=== PATIENT | male | born 1975 | race African-American/Black ===

== ENCOUNTER 2017-09-21 23:01 | Emergency (ER) | payer SELFPAY ==
[~2017-09-21] VITALS: Ht 175.3 cm; Wt 80.0 kg
[2017-09-21 23:13] VITALS: BP 138/81; PULSE 77; RESP 18; TEMP 98.6; O2SAT 99
[2017-09-21 23:24] VITALS: BP 146/80; PULSE 78; RESP 19; TEMP 98.8; O2SAT 99
[2017-09-21 23:47] LABS: BACTERIA, URINE RARE /hpf; BILIRUBIN, URINE NEG (NEG); BLOOD, URINE MOD (NEG); GLUCOSE,URINE NEG (NEG); KETONE, URINE NEG (NEG); MUCUS URINE FEW /lpf (OCC); NITRITE,URINE POS (NEG); RENAL EPITHELIAL CELLS 1 /hpf; SQUAMOUS EPITHELIAL CELL URINE 1 /hpf (0-5); URINE COLOR YELLOW (YELLW/STRAW); URINE LEUKOCYTE ESTERASE LARGE (NEG); WHITE BLOOD CELL CLUMPS MANY
[2017-09-21 23:54] LABS: AUTOMATED NEUTROPHIL # 8.1 TH/MM3 (1.8-7.7); BASOPHIL # 0.1 TH/MM3 (0-0.2); BASOPHIL % 0.7 % (0.0-2.0); EOSINOPHIL # 0.2 TH/MM3 (0-0.4); EOSINOPHIL % 1.9 % (0.0-4.0); HEMATOCRIT 42.8 % (39.0-51.0); HEMOGLOBIN 13.9 GM/DL (13.0-17.0); LYMPH % 16.7 % (9.0-44.0); LYMPHOCYTE # 1.8 TH/MM3 (1.0-4.8); MEAN CELL VOLUME 81.9 FL (80.0-100.0); MEAN CORPUSCULAR HEMOGLOBIN 26.6 PG (27.0-34.0); MEAN CORPUSCULAR HGB CONC 32.4 % (32.0-36.0); MEAN PLATELET VOLUME 8.9 FL (7.0-11.0); MONOCYTE # 0.8 TH/MM3 (0-0.9); NEUT % 73.7 % (16.0-70.0); PLATELET COUNT 257 TH/MM3 (150-450); RED BLOOD COUNT 5.22 MIL/MM3 (4.50-5.90); RED CELL DISTRIBUTION WIDTH 14.8 % (11.6-17.2)
[2017-09-22 00:06] LABS: ALBUMIN 4.1 GM/DL (3.4-5.0); ALT (GPT) 31 U/L (12-78); AST (GOT) 38 U/L (15-37); BICARBONATE 31.4 MEQ/L (21.0-32.0); BLOOD UREA NITROGEN 12 MG/DL (7-18); CALCIUM 9.2 MG/DL (8.5-10.1); CHLORIDE 105 MEQ/L (98-107); CREATININE 1.02 MG/DL (0.60-1.30); GLOMERULAR FILTRATION RATE 98 ML/MIN (>89); GLUCOSE,RANDOM 85 MG/DL (74-106); SODIUM (NA) 143 MEQ/L (136-145)
[2017-09-22 00:08] LABS: ALKALINE PHOSPHATASE 64 U/L (45-117); TOTAL BILIRUBIN ADULT 0.3 MG/DL (0.2-1.0); TOTAL PROTEIN 7.5 GM/DL (6.4-8.2)
[2017-09-22] MEDS ORDERED: KETOROLAC TROMETHAMINE 30 MG/ML (IVP) VIAL IV PUSH ONE (00:15)
[2017-09-22] MEDS ORDERED: SODIUM CHLOR 0.9% 1000 ML INJ 1,000 ML IV ONE (00:15)
[2017-09-22] MEDS ORDERED: cefTRIAXone INJ 1,000 MG in SODIUM CHLORIDE 0.9% INJ 100 ML IV ONE (00:15)
[2017-09-22] MEDS ORDERED: MORPHINE SULFATE 2 MG/ML SYRINGE IV PUSH ONE (00:15)
[2017-09-22] MEDS ORDERED: ONDANSETRON HCL 4 MG/2 ML VIAL IV PUSH ONE (00:15)
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
--- NOTE | 2017-09-22 01:20 | RADRPT ---
EXAM DATE/TIME: 09/22/2017 00:57 [facility] COMPARISON: No previous studies available for comparison. INDICATIONS : Right flank pain. ORAL CONTRAST: No oral contrast ingested. RADIATION DOSE: 5.89 CTDIvol (mGy) MEDICAL HISTORY : None SURGICAL HISTORY : None. ENCOUNTER: Initial ACUITY: 1 day PAIN SCALE: 9/10 LOCATION: Right flank TECHNIQUE: Volumetric scanning of the abdomen and pelvis was performed. Using automated exposure control and ad justment of the mA and/or kV according to patient size, radiation dose was kept as low as reasonably achievable to obtain optimal diagnostic quality images. DICOM format image data is available electro nically for review and comparison. FINDINGS: LOWER LUNGS: The visualized lower lungs are clear. LIVER: Homogeneous density without lesion. There is no dilation of the biliary tree. No calcified gallston es. SPLEEN: Normal size without lesion. PANCREAS: Within normal limits. KIDNEYS: Normal in size and shape. 3.8 cm right upper pole cyst. There is no solid mass, stone, or hydronephr osis demonstrated. No ureteral dilatation or calculus seen. There are scattered calcifications in bot h sides of the pelvic cavity that appear to be vascular. ADRENAL GLANDS: Within normal limits. VASCULAR: There is no aortic aneurysm. BOWEL/MESENTERY: Stomach is distended. The small bowel and colon demonstrate no acute abnormality. There is no free i ntraperitoneal air or fluid. Normal appendix. ABDOMINAL WALL: Within normal limits. RETROPERITONEUM: There is no lymphadenopathy. BLADDER: No wall thickening or mass. REPRODUCTIVE: Within normal limits. INGUINAL: There is no lymphadenopathy or hernia. MUSCULOSKELETAL: Within normal limits for patient age. CONCLUSION: 1. Nonspecific gastric distention. No perceptible mass or inflammatory changes. 2. 3.8 cm benign appearing cyst of the upper pole of the right kidney. 3. Otherwise negative. No stones or evidence of obstructive uropathy. Shahid Eagle MD on September 22, 2017 at 1:15 Board Certified Radiologist. This report was verified electronically.
[2017-09-22 01:30] VITALS: BP 133/72; PULSE 91; RESP 18; O2SAT 98
[2017-09-22] MEDS ORDERED: AZITHROMYCIN 250 MG TAB PO ONE (01:30)
[2017-09-22] MEDS ORDERED: SODIUM CHLORIDE 0.9% FLUSH 10 ML FLUSH IVF PRN (01:30)
[2017-09-22] MEDS ORDERED: CIPR-9 PO (02:56)
[2017-09-22] MEDS ORDERED: IBUP1TAB7 PO (02:56)
== END 2017-09-22 03:22 | disposition home or self-care (01) ==
LOC: NEPC 23:01
DX: N39.0 Urinary tract infection, site not specified (principal)
CPT/HCPCS: 74176; 80053; 81001; 83690; 85025; 87077; 87086; 87186; 87491; 87591; 96361; 96365; 96375; 99284; J0696; J1885; J2270; J2405; J7030

== ENCOUNTER 2017-09-23 12:20 | Inpatient (IN) | payer SELFPAY ==
[~2017-09-23] VITALS: Ht 175.3 cm; Wt 77.3 kg
[~2017-09-23 12:20] MED LIST: CIPR-9 PO; IBUP1TAB7 PO
[2017-09-23] MEDS ORDERED: IOHEXOL 350 MG/ML 10 ML VIAL (for RAD DIAG) IVCONTRAST ONE (12:21)
[2017-09-23 12:44] VITALS: BP 135/73; PULSE 92; RESP 14; TEMP 99; O2SAT 100
[2017-09-23 14:37] LABS: AUTOMATED NEUTROPHIL # 23.7 TH/MM3 (1.8-7.7); BASOPHIL # 0.1 TH/MM3 (0-0.2); BASOPHIL % 0.2 % (0.0-2.0); HEMATOCRIT 45.1 % (39.0-51.0); HEMOGLOBIN 14.6 GM/DL (13.0-17.0); LYMPHOCYTE # 0.8 TH/MM3 (1.0-4.8); MEAN CELL VOLUME 82.6 FL (80.0-100.0); MEAN CORPUSCULAR HEMOGLOBIN 26.7 PG (27.0-34.0); MEAN CORPUSCULAR HGB CONC 32.3 % (32.0-36.0); MEAN PLATELET VOLUME 9.9 FL (7.0-11.0); MONO % 3.9 % (0.0-8.0); NEUT % 92.9 % (16.0-70.0); PLATELET COUNT 196 TH/MM3 (150-450); RED BLOOD COUNT 5.46 MIL/MM3 (4.50-5.90); RED CELL DISTRIBUTION WIDTH 14.9 % (11.6-17.2); WHITE BLOOD COUNT 25.5 TH/MM3 (4.0-11.0)
[2017-09-23 14:42] LABS: BILIRUBIN, URINE NEG (NEG); BLOOD, URINE NEG (NEG); GLUCOSE,URINE 70 mg/dL (NEG); KETONE, URINE NEG (NEG); MUCUS URINE FEW /lpf (OCC); NITRITE,URINE NEG (NEG); PH, URINE 6.5 (5.0-8.5); URINE COLOR YELLOW (YELLW/STRAW); URINE LEUKOCYTE ESTERASE NEG (NEG)
[2017-09-23 15:00] VITALS: BP 129/59; PULSE 84; RESP 16; TEMP 98.7; O2SAT 97
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
[2017-09-23] MEDS ORDERED: SODIUM CHLOR 0.9% 1000 ML INJ 1,000 ML IV SCH (15:05)
[2017-09-23 15:10] LABS: ALBUMIN 3.3 GM/DL (3.4-5.0); ALKALINE PHOSPHATASE 59 U/L (45-117); ALT (GPT) 23 U/L (12-78); AST (GOT) 15 U/L (15-37); BICARBONATE 28.7 MEQ/L (21.0-32.0); BLOOD UREA NITROGEN 6 MG/DL (7-18); CALCIUM 9.1 MG/DL (8.5-10.1); CHLORIDE 105 MEQ/L (98-107); CREATININE 0.89 MG/DL (0.60-1.30); GLOMERULAR FILTRATION RATE 114 ML/MIN (>89); GLUCOSE,RANDOM 117 MG/DL (74-106); SODIUM (NA) 139 MEQ/L (136-145); TOTAL BILIRUBIN ADULT 0.5 MG/DL (0.2-1.0); TOTAL PROTEIN 7.2 GM/DL (6.4-8.2)
[2017-09-23] MEDS ORDERED: SODIUM CHLORIDE 0.9% FLUSH 10 ML FLUSH IV FLUSH PRN ×2 (15:15→21:30)
[2017-09-23] MEDS ORDERED: ONDANSETRON HCL 4 MG/2 ML VIAL IVP ONE ×2 (15:15→17:45)
[2017-09-23] MEDS ORDERED: cefTRIAXone INJ 1,000 MG in SODIUM CHLORIDE 0.9% INJ 100 ML IV ONE (15:15)
[2017-09-23] MEDS ORDERED: MORPHINE SULFATE 4 MG/ML INJ IV PUSH ONE (15:15)
[2017-09-23] MEDS ORDERED: metroNIDAZOLE 500 MG INJ 100 ML IV ONE (15:15)
[2017-09-23] MEDS ORDERED: DIATRIZOATE MEGLUM/DIATRIZOATE SOD 9 ML CUP ONE ×2 (15:31→15:33)
--- NOTE | 2017-09-23 17:31 | RADRPT ---
EXAM DATE/TIME: 09/23/2017 16:54 [facility] COMPARISON: CT ABDOMEN & PELVIS W/O CONTRAST, September 22, 2017, 0:57. INDICATIONS : Right lower quadrant pain. IV CONTRAST: 100 cc Omnipaque 350 (iohexol) IV ORAL CONTRAST: Prescribed oral contrast ingested. RADIATION DOSE: 6.64 CTDIvol (mGy) MEDICAL HISTORY : None SURGICAL HISTORY : None. ENCOUNTER: Initial ACUITY: 1 day PAIN SCALE: 10/10 LOCATION: Right lower quadrant abdomen TECHNIQUE: Volumetric scanning of the abdomen and pelvis was performed. Using automated exposure control and ad justment of the mA and/or kV according to patient size, radiation dose was kept as low as reasonably achievable to obtain optimal diagnostic quality images. DICOM format image data is available electro nically for review and comparison. FINDINGS: LOWER LUNGS: There is some developing atelectatic changes in the left base. Airspace disease posteriorly in the ri ght base is more extensive and could represent early infiltrate. Small associated effusion with regio nal granulomatous type calcifications. LIVER: Homogeneous density without lesion. There is no dilation of the biliary tree. No calcified gallston es. SPLEEN: Normal size without lesion. PANCREAS: Within normal limits. KIDNEYS: Normal in size and shape. There is no mass, stone or hydronephrosis. Benign-appearing cysts in the u pper pole cortices of both kidneys, the largest on the right measuring 2.7 cm in diameter. Contrast i s identified throughout the collecting system and ureters of both kidneys without nephrolithiasis or obstruction ADRENAL GLANDS: Within normal limits. VASCULAR: There is no aortic aneurysm. BOWEL/MESENTERY: The stomach, small bowel, and colon demonstrate no acute abnormality. There is no free intraperitone al air or fluid. The appendix is not clearly identified on the current exam. On the study performed o ne day earlier, the air filled appendix was identified and was radiographically intact ABDOMINAL WALL: Within normal limits. RETROPERITONEUM: There is no lymphadenopathy. BLADDER: No wall thickening or mass. REPRODUCTIVE: Within normal limits. INGUINAL: There is no lymphadenopathy or hernia. MUSCULOSKELETAL: Within normal limits for patient age. CONCLUSION: 1. Developing bibasilar airspace disease. This appears atelectatic on the left. Possible early infilt rate with associated effusion on the right. This can produce referred upper quadrant abdominal pain. 2. Parenchymal calcifications in the right lung base. 3. The appendix is not clearly identified on the current exam but appeared radiographically intact on e day earlier. 4. Benign-appearing cysts in the upper pole cortices of both kidneys. Collecting systems and ureters are contrast-filled without nephrolithiasis or obstruction. Ken Merritt MD on September 23, 2017 at 17:18 Board Certified Radiologist. This report was verified electronically.
[2017-09-23] MEDS ORDERED: HYDROmorphone HCL PF 1 MG/ML VIAL IVS ONE (17:45)
[2017-09-23] MEDS ORDERED: HYDROmorphone HCL PF 2 MG/ML VIAL IV ONE (18:00)
[2017-09-23 18:19] VITALS: BP 119/58; PULSE 82; RESP 18; O2SAT 98
--- NOTE | 2017-09-23 18:20 | PD ---
Data Data Last Documented VS Vital Signs Date Time Temp Pulse Resp B/P (MAP) Pulse Ox O2 Delivery O2 Flow Rate FiO2 09/23/17 18:19 82 18 119/58 (78) 98 Room Air 09/23/17 15:00 98.7 Orders Orders Complete Blood Count With Diff (09/23/17 12:47) Comprehensive Metabolic Panel (09/23/17 12:47) Urinalysis - C+S If Indicated (09/23/17 12:47) Iv Access Insert/Monitor (09/23/17 12:47) Lipase (09/23/17 12:47) Ct Abd/Pel W Iv Contrast(Rout) (09/23/17 15:05) Ecg Monitoring (09/23/17 15:05) Oximetry (09/23/17 15:05) NPO (09/23/17 15:05) Morphine Inj (Morphine Inj) (09/23/17 15:15) Ondansetron Inj (Zofran Inj) (09/23/17 15:15) Sodium Chlor 0.9% 1000 Ml Inj (Ns 1000 M (09/23/17 15:05) Sodium Chloride 0.9% Flush (Ns Flush) (09/23/17 15:15) Metronidazole 500 Mg Inj (Flagyl 500 Mg (09/23/17 15:15) Ceftriaxone Inj (Rocephin Inj) (09/23/17 15:15) Oral Contrast - Adult (09/23/17 15:22) Diatrizoate Liq ( Gastroview Liq) (09/23/17 15:31) Diatrizoate Liq ( Gastrorai Liq) (09/23/17 15:33) Iohexol 350 Inj (Omnipaque 350 Inj) (09/23/17 12:21) Ondansetron Inj (Zofran Inj) (09/23/17 17:45) Hydromorphone Pf Inj (Dilaudid Pf Inj) (09/23/17 17:45) Us Abdomen Gallbladder (09/23/17 ) Hydromorphone Pf Inj (Dilaudid Pf Inj) (09/23/17 18:00) Admit Order (Ed Use Only) (09/23/17 ) Outpatient Admitting Clerk / Telemetry DAISY.Q8H (09/23/17 19:02) Vital Signs (Adult) Q4H (09/23/17 19:02) Diet Heart Healthy (09/24/17 Breakfast) Activity Bed Rest (09/23/17 19:02) Labs Laboratory Tests Test 09/23/17 13:30 White Blood Count 25.5 TH/MM3 Red Blood Count 5.46 MIL/MM3 Hemoglobin 14.6 GM/DL Hematocrit 45.1 % Mean Corpuscular Volume 82.6 FL Mean Corpuscular Hemoglobin 26.7 PG Mean Corpuscular Hemoglobin Concent 32.3 % Red Cell Distribution Width 14.9 % Platelet Count 196 TH/MM3 Mean Platelet Volume 9.9 FL Neutrophils (%) (Auto) 92.9 % Lymphocytes (%) (Auto) 3.0 % Monocytes (%) (Auto) 3.9 % Eosinophils (%) (Auto) 0.0 % Basophils (%) (Auto) 0.2 % Neutrophils # (Auto) 23.7 TH/MM3 Lymphocytes # (Auto) 0.8 TH/MM3 Monocytes # (Auto) 1.0 TH/MM3 Eosinophils # (Auto) 0.0 TH/MM3 Basophils # (Auto) 0.1 TH/MM3 CBC Comment DIFF FINAL Differential Comment Urine Color YELLOW Urine Turbidity CLEAR Urine pH 6.5 Urine Specific [place] 1.025 Urine Protein 100 mg/dL Urine Glucose (UA) 70 mg/dL Urine Ketones NEG mg/dL Urine Occult Blood NEG Urine Nitrite NEG Urine Bilirubin NEG Urine Urobilinogen 2.0 MG/DL Urine Leukocyte Esterase NEG Urine RBC 1 /hpf Urine WBC 6 /hpf Urine Mucus FEW /lpf Microscopic Urinalysis Comment CULT NOT INDICATED Blood Urea Nitrogen 6 MG/DL Creatinine 0.89 MG/DL Random Glucose 117 MG/DL Total Protein 7.2 GM/DL Albumin 3.3 GM/DL Calcium Level 9.1 MG/DL Alkaline Phosphatase 59 U/L Aspartate Amino Transf (AST/SGOT) 15 U/L Alanine Aminotransferase (ALT/SGPT) 23 U/L Total Bilirubin 0.5 MG/DL Sodium Level 139 MEQ/L Potassium Level 4.2 MEQ/L Chloride Level 105 MEQ/L Carbon Dioxide Level 28.7 MEQ/L Anion Gap 5 MEQ/L Estimat Glomerular Filtration Rate 114 ML/MIN Lipase 45 U/L MDM Medical Record Reviewed: Yes Supervised Visit with MARC: No Narrative Course Please refer to the outgoing provider note. The patient has had abdominal pain on the right side for several days now. He has had a repeated CT scan which shows a density at the lung bases with an effusion on the right side. There is a cystic process in the upper right kidney. There is a leukocytosis about 25, 000 with 93% neutrophils. Rocephin and Flagyl started. A call was placed to the family medicine residents at approximately 545 for admission. The patient was asked about the same time found to be resting comfortably. He was informed of the workup so far and was amenable to plan included admission for treatment and further diagnostic evaluation. CBC & BMP Diagram 09/23/17 13:30 Total Protein 7.2, Albumin 3.3 #L, Calcium Level 9.1, Alkaline Phosphatase 59, Aspartate Amino Transf (AST/SGOT) 15, Alanine Aminotransferase (ALT/SGPT) 23, Total Bilirubin 0.5 Last Impressions Abdomen/Pelvis CT 09/23/17 1505 Signed Impressions: Service Date/Time: September 16:54 - CONCLUSION: 1. Developing bibasilar airspace disease. This appears atelectatic on the left. Possible early infiltrate with associated effusion on the right. This can produce referred upper quadrant abdominal pain. 2. Parenchymal calcifications in the right lung base. 3. The appendix is not clearly identified on the current exam but appeared radiographically intact one day earlier. 4. Benign-appearing cysts in the upper pole cortices of both kidneys. Collecting systems and ureters are contrast-filled without nephrolithiasis or obstruction. Ken Merritt MD Urinalysis shows no UTI d/w family intervention specialist at 715pm admission under dr pool Diagnosis Primary Impression: Pleural effusion Additional Impressions: Pneumonia Right kidney mass Admitting Information Admitting Physician Requests: Admit John Rangel MD Sep 23, 2017 18:20
[2017-09-23 19:24] VITALS: BP 119/60; PULSE 83; RESP 16; O2SAT 95
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
[2017-09-23] MEDS ORDERED: IBUPROFEN 400 MG TAB PO PRN (21:30)
[2017-09-23] MEDS ORDERED: MAGNESIUM HYDROXIDE SUSP 30 ML CUP PO PRN (21:30)
[2017-09-23] MEDS ORDERED: BISACODYL 10 MG SUPP RECTAL PRN (21:30)
[2017-09-23] MEDS ORDERED: MORPHINE SULFATE 2 MG/ML SYRINGE IV PUSH PRN (21:30)
[2017-09-23] MEDS ORDERED: LACTULOSE SYRUP 20 GM/30 ML CUP PO PRN (21:30)
[2017-09-23] MEDS ORDERED: NALOXONE HCL 0.4 MG/ML AMP IV PUSH PRN (21:30)
[2017-09-23] MEDS ORDERED: SENNOSIDES 8.6 MG TAB PO PRN (21:30)
[2017-09-23 21:44] VITALS: O2SAT 97
--- NOTE | 2017-09-23 22:12 | RADRPT ---
EXAM DATE/TIME: 09/23/2017 21:46 [facility] COMPARISON: CT ABDOMEN & PELVIS W CONTRAST, September 23, 2017, 16:54. INDICATIONS : Chest pain. MEDICAL HISTORY : None. SURGICAL HISTORY : None. ENCOUNTER: Initial ACUITY: 3 days PAIN SCORE: 5/10 LOCATION: Bilateral chest FINDINGS: Appears to be minimal parenchymal fasting the posterior right lung base. No evidence of effusion. Car diac contours are satisfactory. Thoracic skeleton is grossly intact. CONCLUSION: Mild basilar infiltrate Shahid Hauser MD on September 23, 2017 at 22:09 Board Certified Radiologist. This report was verified electronically.
[2017-09-23] MEDS ORDERED: AZITHROMYCIN 250 MG TAB PO ONE (22:45)
[2017-09-23] MEDS: MORPHINE SULFATE 4 MG/ML INJ IV PUSH PRN (23:30)
[2017-09-23 23:33] VITALS: BP 142/70; PULSE 82; RESP 22; TEMP 97.6; O2SAT 96
[2017-09-24] VITALS (13 sets, daily range): BP systolic 133–146; BP diastolic 63–77; PULSE 75–98; RESP 16–20; TEMP 98.2–101.4; O2SAT 94–97
[2017-09-24] MEDS: SODIUM CHLOR 0.9% 1000 ML INJ 1,000 ML IV SCH ×5 (00:47→22:54)
[2017-09-24] MEDS: metroNIDAZOLE 500 MG INJ 100 ML IV SCH ×2 (00:48→05:25)
[2017-09-24] MEDS: MORPHINE SULFATE 4 MG/ML INJ IV PUSH PRN ×2 (04:03→09:14)
[2017-09-24] MEDS: ACETAMINOPHEN 500 MG CPLT PO PRN ×2 (05:55→20:39)
[2017-09-24] MEDS: HYDROmorphone HCL PF 2 MG/ML VIAL IV PUSH PRN ×3 (06:24→20:44)
[2017-09-24] MEDS: PIPERACIL-TAZO 4.5 GM PREMIX 100 ML IV SCH ×4 (06:32→22:54)
[2017-09-24 08:40] LABS: AUTOMATED NEUTROPHIL # 15.2 TH/MM3 (1.8-7.7); BASOPHIL % 0.3 % (0.0-2.0); EOSINOPHIL # 0.1 TH/MM3 (0-0.4); EOSINOPHIL % 0.3 % (0.0-4.0); HEMATOCRIT 38.1 % (39.0-51.0); HEMOGLOBIN 12.4 GM/DL (13.0-17.0); LYMPHOCYTE # 1.2 TH/MM3 (1.0-4.8); MEAN CELL VOLUME 83.4 FL (80.0-100.0); MEAN CORPUSCULAR HEMOGLOBIN 27.1 PG (27.0-34.0); MEAN CORPUSCULAR HGB CONC 32.5 % (32.0-36.0); MEAN PLATELET VOLUME 9.6 FL (7.0-11.0); MONO % 5.6 % (0.0-8.0); NEUT % 86.8 % (16.0-70.0); PLATELET COUNT 210 TH/MM3 (150-450); RED BLOOD COUNT 4.57 MIL/MM3 (4.50-5.90); RED CELL DISTRIBUTION WIDTH 14.6 % (11.6-17.2); WHITE BLOOD COUNT 17.5 TH/MM3 (4.0-11.0)
[2017-09-24] MEDS: SODIUM CHLORIDE 0.9% FLUSH 10 ML FLUSH IV FLUSH SCH ×2 (09:00→20:38)
[2017-09-24 09:09] LABS: BICARBONATE 29.4 MEQ/L (21.0-32.0); CALCIUM 8.9 MG/DL (8.5-10.1); CREATININE 0.98 MG/DL (0.60-1.30)
[2017-09-24] MEDS: DOCUSATE SODIUM 50 MG/SENNA 8.6 MG TAB PO SCH ×2 (09:11→20:38)
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
[2017-09-24] MEDS ORDERED: PILL SPLITTER OTHER PRN (10:45)
[2017-09-24] MEDS: HYDROmorphone HCL 2 MG TAB PO PRN ×4 (10:57→22:57)
[2017-09-24] MEDS ORDERED: IOHEXOL 350 MG/ML 10 ML VIAL (for RAD DIAG) IVCONTRAST ONE (14:24)
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
--- NOTE | 2017-09-24 14:48 | RADRPT ---
EXAM DATE/TIME: 09/24/2017 14:10 [facility] COMPARISON: No previous studies available for comparison. INDICATIONS : Chest pain and shortness of breath. IV CONTRAST: 71 cc Omnipaque 350 (iohexol) IV ; Cumulative dose for multiple exams. RADIATION DOSE: 19.49 CTDIvol (mGy) MEDICAL HISTORY : None SURGICAL HISTORY : None. ENCOUNTER: Initial ACUITY: 1 day PAIN SCALE: 4/10 LOCATION: chest TECHNIQUE: Volumetric scanning of the chest was performed using a pulmonary embolism protocol MIP images were re constructed. Using automated exposure control and adjustment of the mA and/or kV according to patien t size, radiation dose was kept as low as reasonably achievable to obtain optimal diagnostic quality images. DICOM format image data is available electronically for review and comparison. Follow-up recommendations for detected pulmonary nodules are based at a minimum on nodule size and pa tient risk factors according to Fleischner Society Guidelines. FINDINGS: PULMONARY ARTERIES: No filling defects are seen in the pulmonary arteries through the segmental level. LUNGS: There is right basal consolidation and minimal density in the left lower lobe.. No concerning pulmon flip nodule is visualized. PLEURAE: There is small right pleural effusion. MEDIASTINUM: There is good visualization of the great vessels of the middle mediastinum. No evidence of mediastin al or hilar adenopathy/mass. MUSCULOSKELETAL: Within normal limits for patient age. MISCELLANEOUS: The visualized upper abdominal organs demonstrate no acute abnormality. CONCLUSION: 1. No evidence for pulmonary embolism. 2. Right basilar consolidation. 3. Small right pleural effusion. Raghu Klein MD on September 24, 2017 at 14:43 Board Certified Radiologist. This report was verified electronically.
[2017-09-24] MEDS ORDERED: cefTRIAXone INJ 1,000 MG in SODIUM CHLORIDE 0.9% INJ 100 ML IV SCH (15:00)
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
--- NOTE | 2017-09-24 15:31 | RADRPT ---
EXAM DATE/TIME: 09/24/2017 14:17 [facility] COMPARISON: CT PULMONARY ANGIOGRAM, September 24, 2017, 14:10. CT ABDOMEN & PELVIS W CONTRAST, September 23, 2017, 16:54 . INDICATIONS : Right sided abdominal pain. IV CONTRAST: 71 cc Omnipaque 350 (iohexol) IV ; Cumulative dose for multiple exams. ORAL CONTRAST: No oral contrast ingested. RADIATION DOSE: 8.25 CTDIvol (mGy) MEDICAL HISTORY : None SURGICAL HISTORY : None. ENCOUNTER: Initial ACUITY: 1 day PAIN SCALE: 5/10 LOCATION: Right abdomen TECHNIQUE: Volumetric scanning of the abdomen and pelvis was performed. Using automated exposure control and ad justment of the mA and/or kV according to patient size, radiation dose was kept as low as reasonably achievable to obtain optimal diagnostic quality images. DICOM format image data is available electro nically for review and comparison. FINDINGS: Small trace pleural effusions are evident. Liver spleen and gallbladder are free of focal defects Low-density mass upper pole of the left kidney is 8 stenotic, partially obstructed upper pole calyx a s does partially fill with contrast. Densities are not painful but can be of source of chronic infec tion. The right kidney is unremarkable There is no ascites or adenopathy Pelvic contents are unremarkable. CONCLUSION: Upper pole calyx right kidney with stenotic infundibulum causing partial obstruction. Generally these do not cause pain but are source of chronic infection. I cannot confirm a stone as the cause of thi s. No other etiology for the right sided abdominal pain is identified. The cecum is deep in the pelvis the normal appearing appendix. There are no inflammatory changes in the pelvis. Jacob Sheth MD FACR on September 24, 2017 at 15:25 Board Certified Radiologist. This report was verified electronically.
[2017-09-24] MEDS ORDERED: SODIUM CHLOR 0.9% 1000 ML INJ 1,000 ML IV ONE (16:00)
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
[2017-09-24] MEDS ORDERED: AZITHROMYCIN 250 MG TAB PO SCH (22:00)
[2017-09-25] MEDS: HYDROmorphone HCL PF 2 MG/ML VIAL IV PUSH PRN ×2 (02:52→17:51)
[2017-09-25 03:59] VITALS: BP 141/75; PULSE 87; RESP 18; TEMP 98.5; O2SAT 92
[2017-09-25] MEDS: HYDROmorphone HCL 2 MG TAB PO PRN ×2 (04:02→08:58)
[2017-09-25] MEDS: PIPERACIL-TAZO 4.5 GM PREMIX 100 ML IV SCH ×3 (05:33→18:15)
[2017-09-25 07:41] LABS: AUTOMATED NEUTROPHIL # 9.9 TH/MM3 (1.8-7.7); BASOPHIL % 0.3 % (0.0-2.0); EOSINOPHIL % 0.4 % (0.0-4.0); HEMATOCRIT 33.8 % (39.0-51.0); LYMPH % 8.2 % (9.0-44.0); MEAN CORPUSCULAR HEMOGLOBIN 27.1 PG (27.0-34.0); MEAN CORPUSCULAR HGB CONC 32.7 % (32.0-36.0); MEAN PLATELET VOLUME 9.2 FL (7.0-11.0); MONOCYTE # 1.1 TH/MM3 (0-0.9); NEUT % 82.1 % (16.0-70.0); PLATELET COUNT 231 TH/MM3 (150-450); RED BLOOD COUNT 4.07 MIL/MM3 (4.50-5.90); RED CELL DISTRIBUTION WIDTH 14.8 % (11.6-17.2); WHITE BLOOD COUNT 12.1 TH/MM3 (4.0-11.0)
[2017-09-25 08:00] VITALS: BP 143/67; PULSE 92; RESP 18; TEMP 98.8; O2SAT 93
[2017-09-25 08:16] LABS: ALBUMIN 1.8 GM/DL (3.4-5.0); BICARBONATE 24.1 MEQ/L (21.0-32.0); CALCIUM 6.4 MG/DL (8.5-10.1); CALCIUM-PROTEIN CORRECTED 7.6 MG/DL (8.5-10.1); CREATININE 0.64 MG/DL (0.60-1.30); TOTAL BILIRUBIN ADULT 0.5 MG/DL (0.2-1.0); TOTAL PROTEIN 4.7 GM/DL (6.4-8.2)
[2017-09-25] MEDS: SODIUM CHLORIDE 0.9% FLUSH 10 ML FLUSH IV FLUSH SCH ×2 (08:56→20:42)
[2017-09-25] MEDS: DOCUSATE SODIUM 50 MG/SENNA 8.6 MG TAB PO SCH ×2 (08:56→20:43)
[2017-09-25] MEDS ORDERED: CALCIUM GLUCONATE 500 MG TAB PO ONE (09:00)
[2017-09-25] MEDS ORDERED: POTASSIUM CHLORIDE 20 MEQ CONTROLLED RELEASE TAB PO ONE (09:00)
[2017-09-25] MEDS ORDERED: CALCIUM CARBONATE 1.25 GM (CA 500 MG) TAB PO ONE (09:15)
[2017-09-25] MEDS ORDERED: oxyCODONE/ACETAMINOPHEN 5 MG/325 MG TAB PO PRN (10:15)
[2017-09-25 11:58] VITALS: BP 136/75; PULSE 85; RESP 18; TEMP 99.6; O2SAT 93
--- NOTE | 2017-09-25 13:00 | HHI.PR ---
Subjective Subjective Notes patient feels better, tolerating diet, no N/V Objective Vitals/I&O Vital Signs Date Time Temp Pulse Resp B/P (MAP) Pulse Ox O2 Delivery O2 Flow Rate FiO2 09/25/17 11:58 99.6 85 18 136/75 (95) 93 09/23/17 19:24 Room Air Labs Laboratory Tests Test 09/25/17 06:50 White Blood Count 12.1 Red Blood Count 4.07 Hemoglobin 11.0 Hematocrit 33.8 Mean Corpuscular Volume 83.0 Mean Corpuscular Hemoglobin 27.1 Mean Corpuscular Hemoglobin Concent 32.7 Red Cell Distribution Width 14.8 Platelet Count 231 Mean Platelet Volume 9.2 Neutrophils (%) (Auto) 82.1 Lymphocytes (%) (Auto) 8.2 Monocytes (%) (Auto) 9.0 Eosinophils (%) (Auto) 0.4 Basophils (%) (Auto) 0.3 Neutrophils # (Auto) 9.9 Lymphocytes # (Auto) 1.0 Monocytes # (Auto) 1.1 Eosinophils # (Auto) 0.0 Basophils # (Auto) 0.0 CBC Comment DIFF FINAL Differential Comment Blood Urea Nitrogen 4 Creatinine 0.64 Random Glucose 80 Total Protein 4.7 Albumin 1.8 Calcium Level 6.4 Alkaline Phosphatase 153 Aspartate Amino Transf (AST/SGOT) 53 Alanine Aminotransferase (ALT/SGPT) 56 Total Bilirubin 0.5 Sodium Level 145 Potassium Level 2.8 Chloride Level 114 Carbon Dioxide Level 24.1 Anion Gap 7 Estimat Glomerular Filtration Rate 167 Protein Corrected Calcium 7.6 HIV (1&2) Ab and P24 Ag, 4th Gener NONREACTIVE Date/Time Source Procedure Growth Status 09/24/17 07:47 Blood Peripheral Aerobic Blood Culture - Preliminary NO GROWTH IN 1 DAY Resulted 09/24/17 07:47 Blood Peripheral Anaerobic Blood Culture - Preliminary NO GROWTH IN 1 DAY Resulted 09/23/17 13:30 Urine Clean Catch Legionella Antigen - Final PRESUMPTIVE NEGATIVE FOR LEGIONELLA P... Complete 09/23/17 13:30 Urine Clean Catch Streptococcus pneumoniae Antigen (M - Final PRESUMPTIVE NEGATIVE FOR STREPTOCOCCU... Complete Abdomen: Non-distended, Non-tender A/P Assessment and Plan 42yo male with pylonephritis, stable. RLQ tender only because it is in vicinity of exquisite right flank/CVA tenderness. patient tolerating diet, no GI symptoms, appendicitis is ruled out, will sign off, thank you for consult. Artemio Crockett MD Sep 25, 2017 13:00
--- NOTE | 2017-09-25 13:28 | HHI.FPPN ---
Subjective Remarks Patient seen and examined this morning. He states that he is still having abdominal pain in his RLQ. It is worse with movement. When he moves he feels pain in his right flank. He had a fever overnight to 101.4F along with night sweats. No chest pain, no shortness of breath, no nausea or vomiting, had a loose bowel movement last night. (Tiffany Galvan MD R1) Objective Vitals Vital Signs Date Time Temp Pulse Resp B/P (MAP) Pulse Ox O2 Delivery O2 Flow Rate FiO2 09/25/17 11:58 99.6 85 18 136/75 (95) 93 09/25/17 08:00 98.8 92 18 143/67 (92) 93 09/25/17 05:02 18 09/25/17 03:59 98.5 87 18 141/75 (97) 92 09/25/17 03:22 20 09/24/17 22:48 98.9 96 20 137/69 (91) 94 09/24/17 21:56 99.7 09/24/17 21:39 16 09/24/17 20:33 101.4 93 17 134/70 (91) 94 09/24/17 15:08 98.2 86 18 146/77 (100) 95 I/O 09/24/17 09/24/17 09/24/17 09/25/17 09/25/17 09/25/17 07:00 15:00 23:00 07:00 15:00 23:00 Intake Total 100 ml 1240 ml Output Total 800 ml 620 ml Balance -800 ml 100 ml 620 ml Intake Oral 240 ml IV Total 100 ml 1000 ml Output Urine Total 800 ml 620 ml # Bowel Movements 1 (Tiffany Galvan MD R1) Result Diagram: 09/25/17 0650 09/25/17 0650 Imaging Last Impressions Renal Ultrasound 09/24/17 0000 Signed Impressions: Service Date/Time: Sunday, September 24, 2017 08:40 - CONCLUSION: Abnormal right kidney with complex probably cystic mass upper pole. Minimal perinephric stranding about the right kidney. Continued surveillance is suggested. Low index of suspicion for malignancy. Jacob Sheth MD FACR CT Angiography 09/24/17 0000 Signed Impressions: Service Date/Time: Sunday, September 24, 2017 14:10 - CONCLUSION: 1. No evidence for pulmonary embolism. 2. Right basilar consolidation. 3. Small right pleural effusion. Raghu Klein MD Abdomen/Pelvis CT 09/24/17 0000 Signed Impressions: Service Date/Time: Sunday, September 24, 2017 14:17 - CONCLUSION: Upper pole calyx right kidney with stenotic infundibulum causing partial obstruction. Generally these do not cause pain but are source of chronic infection. I cannot confirm a stone as the cause of this. No other etiology for the right sided abdominal pain is identified. The cecum is deep in the pelvis the normal appearing appendix. There are no inflammatory changes in the pelvis. Jacob Sheth MD FACR Chest X-Ray [id number] Signed Impressions: Service Date/Time: September 21:46 - CONCLUSION: Mild basilar infiltrate Shahid Hauser MD Gall Bladder Ultrasound 09/23/17 0000 Signed Impressions: Service Date/Time: September 18:54 - CONCLUSION: Mildly distended gallbladder containing sludge. Complex upper pole renal mass for which followup will be needed. Shahid Hauser MD Objective Remarks GENERAL: Well-nourished, well-developed patient lying in bed, in no acute distress. SKIN: Warm and dry. HEAD: Normocephalic. EYES: No scleral icterus. No injection or drainage. NECK: Supple, trachea midline. No JVD or lymphadenopathy. CARDIOVASCULAR: Regular rate and rhythm without murmurs, gallops, or rubs. RESPIRATORY: Breath sounds equal bilaterally. No accessory muscle use. GASTROINTESTINAL: Abdomen soft, tenderness to palpation at RLQ and right flank, nondistended. right CVA tenderness EXTREMITIES: No cyanosis, or edema. NEUROLOGICAL: Awake, alert, and oriented x 3. Non-focal. (Tiffany Galvan MD R1) A/P Assessment and Plan 42 yo M with no PMH presenting with 2 day history of worsening RLQ/R flank pain associated with nausea. Found to have UTI 2 days prior to admission and has been treated with Cipro. His abdominal pain has worsened and he now has significant leukocytosis. CT abdomen on admission significant for R renal cyst as well as R pleural effusion. No signs of appendicitis. Received Rocephin and Metronidazole in ED. (Tiffany Galvan MD R1) Attending Attestation Patient seen and examined. Case reviewed and discussed Agree with plan of care as discussed with me and documented in the resident note. (Fiona Villa MD) Problem List: (1) Leukocytosis ICD Codes: D72.829 - Elevated white blood cell count, unspecified Status: Resolved Plan: WBC of 25.5 on admission, had been normal 2 days prior to admission Neutrophil % 92.9 Vital signs stable and normal on admission Patient found to have significant UTI on 09/21 Patient has complained of sharp right lower quadrant abdominal pain for last 48 hours prior to admission Received Rocephin 1, has been on ciprofloxacin for 48 hours prior to admission CT abdomen on admission no signs of nephrolithiasis or obstruction benign-appearing cyst in the upper pole cortices of both kidneys No signs of appendicitis Developing bibasilar airspace disease, atelectatic on the left and possible early infiltrate/effusion on the right Gallbladder ultrasound on admission mildly distended gallbladder containing sludge Renal ultrasound on 09/24 shows abnormal right kidney with complex cystic mass in the upper pole. Minimal perinephric stranding about the right kidney CT abdomen pelvis on 420 shows upper pole calyx of right kidney with stenotic infundibulum causing partial obstruction. Likely source of chronic infection. Stone not visualized. Normal-appearing pin appendix. -Spoke with Dr. Hauser about findings of CT. He stated that there was fluid in the retroperitoneum that could lead to symptoms of pain. He suggested consulting IR for possible percutaneous drainage. -Interventional radiology consult, appreciate recommendations -Blood cultures show NGTD -Pro-calcitonin pending Abx as below (2) UTI (urinary tract infection) ICD Codes: N39.0 - Urinary tract infection, site not specified Status: Acute Plan: UA showed significant WBC, leukocyte esterase, Nitrites on 09/21 Culture grew carmona sensitive E coli UA on admission showing protein, [address] abdomen findings as above Had been on cipro for 48 hours prior to admission Rocephin 1gm daily Will consider urology consult pending clinical improvement. (3) Abdominal pain ICD Codes: R10.9 - Unspecified abdominal pain Status: Acute Plan: Sudden onset of severe, sharp RLQ abdominal/R flank pain present for last [address] findings as above CVA tenderness on admission Received morphine, dilaudid x 2 in ED low suspicion for appendicitis renal ultrasound to further evaluate renal cyst, see above Metronidazole 500mg IV q6hr added on admission to cover abdominal pathology, DC' d on 09/24 Zosyn 4.5 g IV every 6 hours started on 09/24 -Consult general surgery, appreciate recommendations -Appendicitis is ruled out -Consult infectious disease, appreciate antibiotic recommendations On Percocet for pain and Dilaudid for breakthrough (4) Renal cyst ICD Codes: N28.1 - Cyst of kidney, acquired Status: Acute Plan: CT abdomen on admission showed benign-appearing cysts in upper pole cortices of both kidneys Renal ultrasound on 09/24 shows abnormal right kidney with complex cystic mass in the upper pole. Minimal perinephric stranding about the right kidney CT abdomen pelvis on 420 shows upper pole calyx of right kidney with stenotic infundibulum causing partial obstruction. Likely source of chronic infection. Stone not visualized. Normal-appearing pin appendix. -Spoke with Dr. Hauser about findings of CT. He stated that there was fluid in the retroperitoneum that could lead to symptoms of pain. He suggested consulting IR for possible percutaneous drainage. Urology consulted appreciate recommendations -Consult ID for current antibiotic treatment See above (5) Pleural effusion ICD Codes: J90 - Pleural effusion, not elsewhere classified Status: Acute Plan: CT abdomen on exam showed developing bibasilar airspace disease, atelectatic on the left and possible early infiltrate/effusion on the right Does not complain of cough, SOB but has been bedridden for 2 days CXR on 09/23 shows mild basilar infiltrate Legionella, pneumococcal urinary Ag negative Added Azithromycin to cover CAP on 09/24, DC on 09/25 due to patient likely not having pneumonia Added incentive spirometer (6) Hypokalemia ICD Codes: E87.6 - Hypokalemia Status: Resolved Plan: Morning labs on 09/25 revealed potassium level of 2.8 from 3.8 the previous day. Likely due to patient's loose bowel movement. -Patient given 60 mEq of potassium chloride, another 40 mEq was given at 1400 -Repeat BMP at 1500 -Magnesium pending, replete as needed -Lactobacillus probiotics for loose stools (7) Chest pain ICD Codes: R07.9 - Chest pain, unspecified Status: Resolved Plan: Patient complaining of dull, substernal chest pain that is worse with deep breathing tender to palpation on exam, likely MSK related but will rule out ACS EKG pending Troponin x1 negative D dimer severely elevated at 5.56 -CTA on 09/24 shows no evidence for pulmonary embolism. Right basilar consolidation, small right pleural effusion CXR on 09/23 showed mild basilar infiltrate Was put on telemetry in ED, will DC pending EKG result, not obtained, chest pain has resolved since 09/24 (8) FEN Plan: Tolerating p.o. electrolytes WNL Regular diet SCD for DVT prophylaxis Ibuprofen, Percocet, Dilaudid for breakthrough (Tiffany Galvan MD R1) Tiffany Galvan MD R1 Sep 25, 2017 13:28 Fiona Villa MD Sep 27, 2017 13:52
[2017-09-25] MEDS ORDERED: POTASSIUM CHLORIDE 10 MEQ CAP PO ONE (14:00)
[2017-09-25 14:10] VITALS: BP 146/82; PULSE 88; RESP 18; TEMP 99.7; O2SAT 93
[2017-09-25] MEDS: oxyCODONE/ACETAMINOPHEN 10 MG/325 MG TAB PO PRN ×2 (14:24→20:42)
[2017-09-25] MEDS ORDERED: LACTOBACILLUS ACIDOPHILUS TAB PO ONE (14:30)
[2017-09-25 17:26] LABS: BICARBONATE 30.9 MEQ/L (21.0-32.0); CALCIUM 8.9 MG/DL (8.5-10.1); MAGNESIUM 2.1 MG/DL (1.5-2.5)
[2017-09-25] MEDS: SODIUM CHLOR 0.9% 1000 ML INJ 1,000 ML IV SCH ×2 (17:27→18:30)
[2017-09-25 19:55] LABS: INTERNATIONAL NORMALIZED RATIO 1.1 RATIO; PROTHROMBIN TIME - PATIENT 10.7 SEC (9.8-11.6)
[2017-09-25 20:00] VITALS: BP 161/87; PULSE 95; RESP 18; TEMP 99.6; O2SAT 95
[2017-09-25] MEDS: LACTOBACILLUS ACIDOPHILUS TAB PO SCH (20:43)
[2017-09-26] VITALS: BP 143/82; PULSE 88; RESP 20; TEMP 99.2; O2SAT 96
[2017-09-26] MEDS: PIPERACIL-TAZO 4.5 GM PREMIX 100 ML IV SCH ×4 (01:22→19:07)
[2017-09-26] MEDS: HYDROmorphone HCL PF 2 MG/ML VIAL IV PUSH PRN ×4 (01:23→20:24)
[2017-09-26] MEDS: SODIUM CHLOR 0.9% 1000 ML INJ 1,000 ML IV SCH ×4 (01:39→23:08)
[2017-09-26] MEDS: oxyCODONE/ACETAMINOPHEN 10 MG/325 MG TAB PO PRN ×4 (02:31→23:06)
[2017-09-26 04:47] VITALS: BP 156/76; PULSE 88; RESP 18; TEMP 99.1; O2SAT 94
[2017-09-26 07:14] VITALS: BP 142/71; PULSE 85; RESP 18; TEMP 99.2; O2SAT 95
--- NOTE | 2017-09-26 07:35 | HHI.FPPN ---
Subjective Remarks No acute events overnight. Remains afebrile. BPs ranging 130s-160s/60s-80s. 1800cc UOP noted. Patient has complaints this morning of continued left flank pain about an 8-9/ 10. He states his current pain regimen both the PO and breakthrough medications have been helping with his pain however he will start to have increasing pain until his next dose. He states movements usually make his pain worse. He remains ambulatory and has been walking the halls. He specifically denies fevers or chills, chest pain, dyspnea, cough. He denies issues voiding. (Nael Mart MD R2) Objective Vitals Vital Signs Date Time Temp Pulse Resp B/P (MAP) Pulse Ox O2 Delivery O2 Flow Rate FiO2 09/26/17 07:14 99.2 85 18 142/71 (94) 95 09/26/17 04:47 99.1 88 18 156/76 (102) 94 09/26/17 00:00 99.2 88 20 143/82 (102) 96 09/25/17 20:00 99.6 95 18 161/87 (111) 95 09/25/17 14:10 99.7 88 18 146/82 (103) 93 09/25/17 11:58 99.6 85 18 136/75 (95) 93 09/25/17 08:00 98.8 92 18 143/67 (92) 93 I/O 09/25/17 09/25/17 09/25/17 09/26/17 09/26/17 09/26/17 07:00 15:00 23:00 07:00 15:00 23:00 Intake Total 360 ml Output Total 700 ml 625 ml 475 ml Balance -700 ml -625 ml -115 ml Intake Oral 360 ml Output Urine Total 700 ml 625 ml 475 ml (Nael Mart MD R2) Result Diagram: 09/25/17 0650 09/25/17 1631 Objective Remarks GENERAL: Well-nourished, well-developed patient standing up beside bed, in no acute distress. SKIN: Warm and dry. HEAD: Normocephalic. EYES: No scleral icterus. No injection or drainage. NECK: Supple, trachea midline. No JVD or lymphadenopathy. CARDIOVASCULAR: Regular rate and rhythm without murmurs, gallops, or rubs. RESPIRATORY: Breath sounds equal bilaterally. No accessory muscle use. GASTROINTESTINAL: Abdomen soft, tenderness to palpation at RLQ and right flank remains, nondistended. right CVA tenderness. No rebound tenderness. +BS. EXTREMITIES: No cyanosis, or edema. NEUROLOGICAL: Awake, alert, and oriented x 3. Non-focal. (Nael Mart MD R2) A/P Assessment and Plan 42 yo M with no PMH presenting with 2 day history of worsening RLQ/R flank pain associated with nausea. Found to have UTI 2 days prior to admission and has been treated with Cipro. CT abdomen on admission significant for R renal cyst as well as R pleural effusion. No signs of appendicitis. Discharge Planning Anticipate discharge home once medically stable and stable clinical course IR and ID consulted and following the patient (Nael Mart MD R2) Attending Attestation Patient seen and examined. Case reviewed and discussed Agree with plan of care as discussed with me and documented in the resident note. (Fiona Villa MD) Problem List: (1) Abdominal pain ICD Codes: R10.9 - Unspecified abdominal pain Status: Acute Plan: Sudden onset of severe, sharp RLQ abdominal/R flank pain present 48 hours prior to admission CT findings below CVA tenderness remains low suspicion for appendicitis renal ultrasound to further evaluate renal cyst, see above Metronidazole 500mg IV q6hr added on admission to cover abdominal pathology, DC' d on 09/24 Zosyn 4.5 g IV every 6 hours started on 09/24 -Consult general surgery, appreciate recommendations -Appendicitis is ruled out -Consult infectious disease, appreciate antibiotic recommendations - Continue Zosyn for now - Follow C/S - May consider cipro on discharge unless repeat C/S indicates otherwise On Percocet for pain and Dilaudid for breakthrough, will shorten interval of Percocet to q4h as needed (2) Leukocytosis ICD Codes: D72.829 - Elevated white blood cell count, unspecified Status: Resolved Plan: WBC of 25.5 on admission, had been normal 2 days prior to admission, now normalized Neutrophil % 92.9 Vital signs stable and normal on admission Patient found to have significant UTI on 09/21 Patient has complained of sharp right lower quadrant abdominal pain for last 48 hours prior to admission Received Rocephin 1, has been on ciprofloxacin for 48 hours prior to admission CT abdomen on admission no signs of nephrolithiasis or obstruction benign-appearing cyst in the upper pole cortices of both kidneys No signs of appendicitis Developing bibasilar airspace disease, atelectatic on the left and possible early infiltrate/effusion on the right Gallbladder ultrasound on admission mildly distended gallbladder containing sludge Renal ultrasound on 09/24 shows abnormal right kidney with complex cystic mass in the upper pole. Minimal perinephric stranding about the right kidney CT abdomen pelvis on 420 shows upper pole calyx of right kidney with stenotic infundibulum causing partial obstruction. Likely source of chronic infection. Stone not visualized. Normal-appearing pin appendix. -Spoke with Dr. Hauser about findings of CT. He stated that there was fluid in the retroperitoneum that could lead to symptoms of pain. He suggested consulting IR for possible percutaneous drainage. -Interventional radiology consult, appreciate recommendations, planning for placement of right nephrostomy tube -Blood cultures show are no growth to date Abx as below (3) UTI (urinary tract infection) ICD Codes: N39.0 - Urinary tract infection, site not specified Status: Acute Plan: UA showed significant WBC, leukocyte esterase, Nitrites on 09/21 Culture grew carmona sensitive E coli UA on admission showing protein, [address] abdomen findings as above Had been on cipro for 48 hours prior to admission Continue zosyn 4.5 gm IV q6h Received Rocephin 1 gm IV x1 on 09/24 Urology consulted, appreciate recommendations - Consult ID for antibiotic therapy (4) Renal cyst ICD Codes: N28.1 - Cyst of kidney, acquired Status: Acute Plan: CT abdomen on admission showed benign-appearing cysts in upper pole cortices of both kidneys Renal ultrasound on 09/24 shows abnormal right kidney with complex cystic mass in the upper pole. Minimal perinephric stranding about the right kidney CT abdomen pelvis on 420 shows upper pole calyx of right kidney with stenotic infundibulum causing partial obstruction. Likely source of chronic infection. Stone not visualized. Normal-appearing pin appendix. -Spoke with Dr. Hauser about findings of CT. He stated that there was fluid in the retroperitoneum that could lead to symptoms of pain. He suggested consulting IR for possible percutaneous drainage. IR planning for placement of right nephrostomy tube today 09/26 (5) Pleural effusion ICD Codes: J90 - Pleural effusion, not elsewhere classified Status: Acute Plan: CT abdomen on exam showed developing bibasilar airspace disease, atelectatic on the left and possible early infiltrate/effusion on the right Does not complain of cough, SOB but has been bedridden for 2 days CXR on 09/23 shows mild basilar infiltrate Legionella, pneumococcal urinary Ag negative Added Azithromycin to cover CAP on 09/24, DC on 09/25 due to patient likely not having pneumonia Added incentive spirometer (6) Hypokalemia ICD Codes: E87.6 - Hypokalemia Status: Resolved Plan: Morning labs on 09/25 revealed potassium level of 2.8 from 3.8 the previous day. Likely due to patient's loose bowel movement. K+ now normalized -Patient given 60 mEq of potassium chloride, another 40 mEq was given at 1400 -Magnesium within normal limits -Lactobacillus probiotics for loose stools (7) Chest pain ICD Codes: R07.9 - Chest pain, unspecified Status: Resolved Plan: Patient complaining of dull, substernal chest pain that is worse with deep breathing on admission Seems to be improving, pleuritic pain is resolving tender to palpation on exam, likely MSK related but will rule out ACS Troponin x1 negative D dimer severely elevated at 5.56 - CTA on 09/24 shows no evidence for pulmonary embolism. Right basilar consolidation, small right pleural effusion CXR on 09/23 showed mild basilar infiltrate Was put on telemetry in ED, will DC pending EKG result, not obtained, chest pain has resolved since 09/24 (8) FEN Plan: Fluids: NS at 140 cc/hr Electrolytes: continue to monitor Nutrition: Regular diet SCD for DVT prophylaxis (Nael Mart MD R2) Nael Mart MD R2 Sep 26, 2017 07:35 Fiona Villa MD Sep 27, 2017 13:51
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
[2017-09-26 08:56] LABS: AUTOMATED NEUTROPHIL # 8.6 TH/MM3 (1.8-7.7); BASOPHIL # 0.1 TH/MM3 (0-0.2); BASOPHIL % 0.6 % (0.0-2.0); EOSINOPHIL # 0.1 TH/MM3 (0-0.4); EOSINOPHIL % 1.2 % (0.0-4.0); LYMPH % 9.7 % (9.0-44.0); LYMPHOCYTE # 1.1 TH/MM3 (1.0-4.8); MEAN CELL VOLUME 82.1 FL (80.0-100.0); MEAN CORPUSCULAR HEMOGLOBIN 26.7 PG (27.0-34.0); MEAN CORPUSCULAR HGB CONC 32.6 % (32.0-36.0); MEAN PLATELET VOLUME 8.4 FL (7.0-11.0); MONO % 10.2 % (0.0-8.0); MONOCYTE # 1.1 TH/MM3 (0-0.9); NEUT % 78.3 % (16.0-70.0); PLATELET COUNT 325 TH/MM3 (150-450); RED BLOOD COUNT 4.87 MIL/MM3 (4.50-5.90); RED CELL DISTRIBUTION WIDTH 14.6 % (11.6-17.2)
[2017-09-26] MEDS: SODIUM CHLORIDE 0.9% FLUSH 10 ML FLUSH IV FLUSH SCH ×2 (09:10→20:23)
[2017-09-26] MEDS: LACTOBACILLUS ACIDOPHILUS TAB PO SCH ×2 (09:10→20:23)
[2017-09-26] MEDS: DOCUSATE SODIUM 50 MG/SENNA 8.6 MG TAB PO SCH ×2 (09:10→20:23)
[2017-09-26 09:19] LABS: ALBUMIN 2.4 GM/DL (3.4-5.0); AST (GOT) 91 U/L (15-37); BICARBONATE 28.1 MEQ/L (21.0-32.0); BLOOD UREA NITROGEN 7 MG/DL (7-18); CALCIUM 9.3 MG/DL (8.5-10.1); CHLORIDE 103 MEQ/L (98-107); CREATININE 0.96 MG/DL (0.60-1.30); GLOMERULAR FILTRATION RATE 105 ML/MIN (>89); GLUCOSE,RANDOM 103 MG/DL (74-106); SODIUM (NA) 139 MEQ/L (136-145)
[2017-09-26 09:20] LABS: ALT (GPT) 76 U/L (12-78)
[2017-09-26 09:23] LABS: ALKALINE PHOSPHATASE 239 U/L (45-117); TOTAL BILIRUBIN ADULT 0.7 MG/DL (0.2-1.0)
[2017-09-26] MEDS ORDERED: MIDAZOLAM HCL 2 MG/2 ML VIAL ONE (11:26)
[2017-09-26] MEDS ORDERED: fentaNYL CITRATE 250 MCG/5 ML AMP ONE (11:26)
[2017-09-26] MEDS ORDERED: IOHEXOL 350 MG/ML 50 ML BTL (for RAD DIAG) OTHER ONE (12:23)
--- NOTE | 2017-09-26 12:25 | PD.RAD ---
Post Procedure Progress Note Pre Procedure Diagnosis: (1) Leukocytosis (2) Abdominal pain (3) Right kidney mass Post Procedure Diagnosis: (1) Obstructed calyx of the right kidney (2) Leukocytosis Procedure Date: Sep 26, 2017 Supervising Radiologist: Ken Merritt Proceduralist/Assist: Aubrie Solorzano, RT(R)(CV), Giuseppe Beyer, RT(R) Anesthesia: Local, Analgesia, Conscious Sedation Plan of Activity Patient to Unit: PACU Patient Condition: Good See PACS Report for procedural detail/treatment Drainage Procedure Procedure 1 Imaging Guidance: Fluoroscopy, Ultrasound Side: Right Procedure Type: Abscess Drainage, Nephrostomy (Obstructed upper pole calyx) Procedure: Placement Marshallese: 8 Fluid Removal (CCs): 20 Fluid Description: Cloudy, Bloody, Purulent Ken Merritt MD Sep 26, 2017 12:24
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
[2017-09-26] MEDS ORDERED: oxyCODONE/ACETAMINOPHEN 10 MG/325 MG TAB PO PRN (13:10)
[2017-09-26] MEDS ORDERED: oxyCODONE/ACETAMINOPHEN 5 MG/325 MG TAB PO PRN ×2 (13:10→15:00)
[2017-09-26 14:15] VITALS: TEMP 99.4
[2017-09-26] MEDS: SODIUM CHLORIDE 0.9% 10 ML VIAL IRRIGATION SCH ×2 (14:45→19:07)
[2017-09-26 15:14] VITALS: BP 145/80; PULSE 82; RESP 18; TEMP 99.6; O2SAT 94
[2017-09-26 21:28] VITALS: BP 132/74; PULSE 76; RESP 16; TEMP 99.3; O2SAT 93
[2017-09-27] VITALS (7 sets, daily range): BP systolic 122–147; BP diastolic 66–85; PULSE 69–94; RESP 15–17; TEMP 98–99.9; O2SAT 93–96
[2017-09-27] MEDS: PIPERACIL-TAZO 4.5 GM PREMIX 100 ML IV SCH ×4 (00:06→18:45)
[2017-09-27] MEDS: ACETAMINOPHEN 500 MG CPLT PO PRN (00:37)
[2017-09-27] MEDS: HYDROmorphone HCL PF 2 MG/ML VIAL IV PUSH PRN (02:15)
[2017-09-27 04:23] LABS: AUTOMATED NEUTROPHIL # 5.7 TH/MM3 (1.8-7.7); BASOPHIL # 0.1 TH/MM3 (0-0.2); BASOPHIL % 0.6 % (0.0-2.0); EOSINOPHIL # 0.2 TH/MM3 (0-0.4); EOSINOPHIL % 2.1 % (0.0-4.0); HEMOGLOBIN 13.6 GM/DL (13.0-17.0); LYMPH % 17.2 % (9.0-44.0); LYMPHOCYTE # 1.5 TH/MM3 (1.0-4.8); MEAN CELL VOLUME 82.2 FL (80.0-100.0); MEAN CORPUSCULAR HEMOGLOBIN 27.2 PG (27.0-34.0); MEAN CORPUSCULAR HGB CONC 33.1 % (32.0-36.0); MEAN PLATELET VOLUME 8.1 FL (7.0-11.0); MONO % 13.4 % (0.0-8.0); MONOCYTE # 1.2 TH/MM3 (0-0.9); NEUT % 66.7 % (16.0-70.0); PLATELET COUNT 328 TH/MM3 (150-450); RED BLOOD COUNT 4.99 MIL/MM3 (4.50-5.90); RED CELL DISTRIBUTION WIDTH 14.5 % (11.6-17.2); WHITE BLOOD COUNT 8.6 TH/MM3 (4.0-11.0)
[2017-09-27 04:46] LABS: ALBUMIN 2.4 GM/DL (3.4-5.0); ALT (GPT) 101 U/L (12-78); AST (GOT) 112 U/L (15-37); BICARBONATE 29.7 MEQ/L (21.0-32.0); BLOOD UREA NITROGEN 8 MG/DL (7-18); CALCIUM 9.3 MG/DL (8.5-10.1); CHLORIDE 103 MEQ/L (98-107); CREATININE 0.87 MG/DL (0.60-1.30); GLOMERULAR FILTRATION RATE 117 ML/MIN (>89); GLUCOSE,RANDOM 98 MG/DL (74-106); SODIUM (NA) 141 MEQ/L (136-145)
[2017-09-27 04:48] LABS: ALKALINE PHOSPHATASE 322 U/L (45-117); TOTAL BILIRUBIN ADULT 0.4 MG/DL (0.2-1.0); TOTAL PROTEIN 7.2 GM/DL (6.4-8.2)
[2017-09-27] MEDS: SODIUM CHLOR 0.9% 1000 ML INJ 1,000 ML IV SCH ×3 (06:15→21:41)
[2017-09-27] MEDS: LACTOBACILLUS ACIDOPHILUS TAB PO SCH ×2 (09:13→21:27)
[2017-09-27] MEDS: DOCUSATE SODIUM 50 MG/SENNA 8.6 MG TAB PO SCH ×2 (09:14→21:27)
[2017-09-27] MEDS: oxyCODONE/ACETAMINOPHEN 10 MG/325 MG TAB PO PRN ×3 (09:14→21:43)
[2017-09-27] MEDS: SODIUM CHLORIDE 0.9% 10 ML VIAL IRRIGATION SCH ×3 (09:14→18:45)
[2017-09-27] MEDS: SODIUM CHLORIDE 0.9% FLUSH 10 ML FLUSH IV FLUSH SCH ×2 (09:14→21:00)
--- NOTE | 2017-09-27 10:32 | HHI.FPPN ---
Subjective Remarks No acute events overnight, AFVSS. This morning reports increased pain in RLQ. [place] slightly feverish (Tmax 99.9). No nausea or difficulty eating. No CP/SOB. No dysuria, but does note urinary hesitancy / weaker stream. (Aristides Shipley MD R2) Objective Vitals Vital Signs Date Time Temp Pulse Resp B/P (MAP) Pulse Ox O2 Delivery O2 Flow Rate FiO2 09/27/17 07:24 98.9 72 16 147/69 (95) 96 09/27/17 05:14 99.3 69 17 124/66 (85) 95 09/27/17 00:01 99.9 69 15 143/70 (94) 95 09/26/17 21:28 99.3 76 16 132/74 (93) 93 09/26/17 15:14 99.6 82 18 145/80 (101) 94 09/26/17 14:15 99.4 09/26/17 13:00 77 16 110/62 (78) 95 Nasal Cannula 2 09/26/17 12:45 85 16 125/69 (87) 100 Nasal Cannula 2 09/26/17 12:30 81 16 119/74 (89) 100 Nasal Cannula 2 09/26/17 12:20 98.2 88 16 134/79 (97) 100 Nasal Cannula 2 I/O 09/26/17 09/26/17 09/26/17 09/27/17 09/27/17 09/27/17 07:00 15:00 23:00 07:00 15:00 23:00 Intake Total 360 ml 720 ml Output Total 475 ml 3100 ml 500 ml Balance -115 ml -2380 ml -500 ml Intake Oral 360 ml 720 ml Output Urine Total 475 ml 3000 ml 500 ml Drainage Total 100 ml # Bowel Movements 0 (Aristides Shipley MD R2) Result Diagram: 09/27/17 0408 09/27/17 0408 Imaging Last Impressions Nephrostomy 09/26/17 0000 Signed Impressions: Service Date/Time: Tuesday, September 26, 2017 10:24 - CONCLUSION: 1. Ultrasound and fluoroscopic guided placement of a [place] loop catheter in the upper pole the right kidney. 2. I believe patient has an obstructed infundibulum with a dilated calyx. Purulent aspirate was sent for culture and sensitivity. 3. We'll plan bringing the patient back down early next week for further evaluation and possible attempt to traverse the obstructed infundibulum. Ken Merritt MD Renal Ultrasound 09/24/17 Signed Impressions: Service Date/Time: Sunday, September 24, 2017 08:40 - CONCLUSION: Abnormal right kidney with complex probably cystic mass upper pole. Minimal perinephric stranding about the right kidney. Continued surveillance is suggested. Low index of suspicion for malignancy. Jacob Sheth MD FACR CT Angiography 09/24/17 Signed Impressions: Service Date/Time: Sunday, September 24, 2017 14:10 - CONCLUSION: 1. No evidence for pulmonary embolism. 2. Right basilar consolidation. 3. Small right pleural effusion. Raghu Klein MD Abdomen/Pelvis CT 09/24/17 Signed Impressions: Service Date/Time: Sunday, September 24, 2017 14:17 - CONCLUSION: Upper pole calyx right kidney with stenotic infundibulum causing partial obstruction. Generally these do not cause pain but are source of chronic infection. I cannot confirm a stone as the cause of this. No other etiology for the right sided abdominal pain is identified. The cecum is deep in the pelvis the normal appearing appendix. There are no inflammatory changes in the pelvis. Jacob Sheth MD FACR Chest X-Ray [id number]/[id number] Signed Impressions: Service Date/Time: September 21:46 - CONCLUSION: Mild basilar infiltrate Shahid Hauser MD Gall Bladder Ultrasound 09/23/17 Signed Impressions: Service Date/Time: September 18:54 - CONCLUSION: Mildly distended gallbladder containing sludge. Complex upper pole renal mass for which followup will be needed. Shahid Hauser MD Objective Remarks GENERAL: Well-nourished, well-developed patient resting in bed, uncomfortable but in no acute distress. SKIN: Warm and dry. HEAD: NC/AT EYES: No scleral icterus. No injection or drainage. CARDIOVASCULAR: Regular rate and rhythm without murmurs, gallops, or rubs. RESPIRATORY: Breath sounds equal and clear bilaterally. No accessory muscle use. No crackles or wheezes. GASTROINTESTINAL: Abdomen soft, tenderness to palpation at RLQ and right flank remains, nondistended.No rebound tenderness. Nephrotomy tube in place R flank, draining sanguinous fluid. Drain site c/d/i. EXTREMITIES: No cyanosis, or edema. NEUROLOGICAL: Awake, alert. Grossly non-focal. Medications and IVs Current Medications Medications (Trade) Dose Ordered Sig/Thanh Route Start Time Stop Time Status Last Admin (NS Flush) 2 ml UNSCH PRN IV FLUSH 09/23/17 21:30 09/25/17 17:50 (NS Flush) 2 ml BID IV FLUSH 09/24/17 09:00 09/27/17 09:14 (Narcan Inj) 0.4 mg UNSCH PRN IV PUSH 09/23/17 21:30 (Mirta-Colace) 1 tab BID PO 09/24/17 09:00 09/27/17 09:14 (Milk Of Magnesia Liq) 30 ml Q12H PRN PO 09/23/17 21:30 (Senokot) 17.2 mg Q12H PRN PO 09/23/17 21:30 (Dulcolax Supp) 10 mg DAILY PRN RECTAL 09/23/17 21:30 (Lactulose Liq) 30 ml DAILY PRN PO 09/23/17 21:30 Sodium Chloride 1,000 ml @ 140 mls/hr Q7H9M IV 09/23/17 23:36 09/26/17 23:08 Ceftriaxone Sodium 1000 mg/ Sodium Chloride 100 ml @ 200 mls/hr Q24H IV 09/24/17 15:00 Future Hold 09/24/17 14:48 (Tylenol) 500 mg Q6H PRN PO 09/24/17 05:15 09/27/17 00:37 (Dilaudid Pf Inj) 1 mg Q4H PRN IV PUSH 09/24/17 05:45 09/27/17 02:15 Piperacillin Sod/ Tazobactam Sod 100 ml @ 200 mls/hr Q6HR IV 09/24/17 06:00 09/27/17 06:46 (Pill Splitter) 1 ea UNSCH PRN OTHER 09/24/17 10:45 (Lactinex) 1 tab Q12HR PO 09/25/17 21:00 09/27/17 09:13 (NS Inj) 10 ml TID IRRIGATION 09/26/17 13:00 09/27/17 09:14 (Percocet 5-325 Mg) 1 tab Q4HR PRN PO 09/26/17 15:00 10/01/17 14:59 (Percocet 10-325 Mg) 1 tab Q4HR PRN PO 09/26/17 15:00 10/01/17 14:59 09/27/17 09:14 (Aristides Shipley MD R2) A/P Assessment and Plan 42 yo M with no PMH presenting with: Discharge Planning Pending culture results, nephrostomy tube management (likely removal prior to D/ C) (Aristides Shipley MD R2) Attending Attestation Patient seen and examined. Case reviewed and discussed Agree with plan of care as discussed with me and documented in the resident note. (Fiona Villa MD) Problem List: (1) Abdominal pain ICD Codes: R10.9 - Unspecified abdominal pain Status: Acute Plan: Sudden onset of severe, sharp RLQ abdominal/R flank pain present 48 hours prior to admission Likely diagnosis UTI based on work-up, possibly related to obstruction now relieved by nephrostomy tube placed by IR on 09/26 CT findings above renal ultrasound to further evaluate renal cyst, see above -Zosyn 4.5 g IV every 6 hours started on 09/24 -Consult general surgery, appreciate recommendations -Appendicitis is ruled out, now signed off -Consult infectious disease, appreciate antibiotic recommendations -Continue Zosyn for now -Follow C/S taken at time of nephrostomy placement -May consider cipro on discharge unless repeat C/S indicates otherwise -Percocet Q4H PRN for moderate-severe pain and Dilaudid Q3H PRN for breakthrough Antibiotic History Zosyn 09/24 - present Flagyl 09/23 - 09/24 Rocephin 09/23 - 09/24 Zithromax 09/23 - 09/24 (2) Leukocytosis ICD Codes: D72.829 - Elevated white blood cell count, unspecified Status: Resolved Plan: WBC of 25.5 on admission, had been normal 2 days prior to admission, now normalized Due to UTI, see other problems listed (3) UTI (urinary tract infection) ICD Codes: N39.0 - Urinary tract infection, site not specified Status: Acute Plan: UA showed significant WBC, leukocyte esterase, Nitrites on 09/21 Complicated by possible intrarenal obstruction, s/p nephrostomy tube 09/26 by IR Culture grew carmona sensitive E coli UA on admission showing protein, [address] abdomen findings as above Had been on cipro for 48 hours prior to admission -Consulted ID for antibiotic recommendations, see above -Monitory drainage from nephrostomy tube to assess when it can be removed (4) Renal cyst ICD Codes: N28.1 - Cyst of kidney, acquired Status: Acute Plan: CT abdomen on admission showed benign-appearing cysts in upper pole cortices of both kidneys Renal ultrasound on 09/24 shows abnormal right kidney with complex cystic mass in the upper pole. Minimal perinephric stranding about the right kidney CT abdomen pelvis on 420 shows upper pole calyx of right kidney with stenotic infundibulum causing partial obstruction. Likely source of chronic infection. Stone not visualized. Normal-appearing pin appendix. -Spoke with Dr. Hauser about findings of CT. He stated that there was fluid in the retroperitoneum that could lead to symptoms of pain. He suggested consulting IR for possible percutaneous drainage. IR placed right nephrostomy tube today 09/26 Likely cystic structure was abscess, will manage as noted above (5) Pleural effusion ICD Codes: J90 - Pleural effusion, not elsewhere classified Status: Acute Plan: CT abdomen on exam showed developing bibasilar airspace disease, atelectatic on the left and possible early infiltrate/effusion on the right Does not note cough or SOB but has been bedridden for 2 days CXR on 09/23 shows mild basilar infiltrate Legionella, pneumococcal urinary Ag negative Likely related to intraabdominal inflammation due to complicated UTI Continue incentive spirometry Check CXR tomorrow AM (6) FEN Plan: Fluids: NS at 140 cc/hr Electrolytes: monitor and replete PRN Nutrition: Regular diet DVT PPX: Lovenox 40 mg QD (Aristides Shipley MD R2) Aristides Shipley MD R2 Sep 27, 2017 10:32 Fiona Villa MD Oct 01, 2017 13:09
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
[2017-09-27] MEDS ORDERED: MIDAZOLAM HCL 2 MG/2 ML VIAL ONE (16:26)
[2017-09-27] MEDS ORDERED: IOHEXOL 350 MG/ML 50 ML BTL (for RAD DIAG) OTHER ONE (17:29)
--- NOTE | 2017-09-27 18:00 | PD.RAD ---
Post Procedure Progress Note Pre Procedure Diagnosis: (1) Obstructed calyx of the right kidney Post Procedure Diagnosis: (1) Obstructed calyx of the right kidney Procedure Date: Sep 27, 2017 Supervising Radiologist: Ken Merritt Proceduralist/Assist: Sandra Car, RT(R), Yamilet Peña, RT(R)(), Aubrie Solorzano, RT(R)(CV) Anesthesia: Local, Analgesia, Conscious Sedation Plan of Activity Patient to Unit: PACU Patient Condition: Good See PACS Report for procedural detail/treatment Drainage Procedure Procedure 1 Imaging Guidance: Fluoroscopy Procedure Type: Nephrostomy Procedure: Exchange, Evaluation Drainage: [place] drainage Fluid Description: Clear, Red Findings: Unable to traverse presumed obstructed infundibulum of upper pole. Catheter replaced Ken Merritt MD Sep 27, 2017 18:00
[2017-09-27] MEDS ORDERED: *morphine SULFATE 4 MG/ML PERIprocedure ONLY ONE (18:01)
[2017-09-28] MEDS: PIPERACIL-TAZO 4.5 GM PREMIX 100 ML IV SCH ×5 (00:44→23:25)
[2017-09-28] MEDS: HYDROmorphone HCL PF 2 MG/ML VIAL IV PUSH PRN ×6 (00:47→23:01)
[2017-09-28] MEDS: oxyCODONE/ACETAMINOPHEN 10 MG/325 MG TAB PO PRN ×3 (03:13→13:18)
[2017-09-28] MEDS: SODIUM CHLOR 0.9% 1000 ML INJ 1,000 ML IV SCH ×3 (03:13→18:00)
[2017-09-28 03:43] VITALS: BP 151/85; PULSE 84; RESP 17; TEMP 97.9; O2SAT 93
[2017-09-28 05:43] LABS: ALBUMIN 2.6 GM/DL (3.4-5.0); DIRECT BILIRUBIN ADULT 0.1 MG/DL (0.0-0.2)
[2017-09-28 05:46] LABS: INDIRECT BILIRUBIN 0.2 MG/DL (0.0-0.8); TOTAL BILIRUBIN ADULT 0.3 MG/DL (0.2-1.0); TOTAL PROTEIN 7.2 GM/DL (6.4-8.2)
[2017-09-28 08:02] VITALS: BP 116/65; PULSE 71; RESP 16; TEMP 98.4; O2SAT 95
[2017-09-28] MEDS: LACTOBACILLUS ACIDOPHILUS TAB PO SCH ×2 (08:18→19:50)
[2017-09-28] MEDS: DOCUSATE SODIUM 50 MG/SENNA 8.6 MG TAB PO SCH ×2 (08:19→19:55)
[2017-09-28] MEDS: SODIUM CHLORIDE 0.9% 10 ML VIAL IRRIGATION SCH ×3 (09:00→18:00)
[2017-09-28] MEDS: SODIUM CHLORIDE 0.9% FLUSH 10 ML FLUSH IV FLUSH SCH ×2 (09:00→19:50)
--- NOTE | 2017-09-28 11:03 | PD.RAD ---
Radiology Note Unable to find path out of right superior pole collection. ? infected cyst vs obstructed calyx. Discussed with Dr. Richard Perez from Urology. Will leave tube in for now. Could be used to inject contrast into collection if attempt to traverse possible obstructed infundibulum from below. Do not feel there are any further options percutaneously. Ken Merritt MD Sep 28, 2017 11:03
[2017-09-28 11:58] VITALS: BP 129/76; PULSE 74; RESP 20; TEMP 98.3; O2SAT 95
--- NOTE | 2017-09-28 13:59 | HHI.FPPN ---
Subjective Remarks Patient seen and examined at bedside this morning. No acute events overnight. Patient had a repeat revision of nephrostomy tube placement by IR yesterday. Patient reports that since then he has felt less pressure on his right side. Patient reports that pain improved and is now localized to right side of his abdomen. Patient also reports that he has not had a bowel movement in the last 3 days and he is very uncomfortable. He has been able to tolerate p.o. intake well. Endorses night sweats. Denies fever. (Katalina Palencia MD, R1) Objective Vitals Vital Signs Date Time Temp Pulse Resp B/P (MAP) Pulse Ox O2 Delivery O2 Flow Rate FiO2 09/28/17 10:23 22 09/28/17 08:02 98.4 71 16 116/65 (82) 95 09/28/17 07:10 20 09/28/17 03:43 97.9 84 17 151/85 (107) 93 09/27/17 23:17 99.3 78 17 126/77 (93) 93 09/27/17 19:52 98.0 94 17 129/77 (94) 94 09/27/17 18:05 92 16 127/80 (96) 96 Nasal Cannula 2 09/27/17 17:49 99.6 93 15 135/78 (97) 95 Nasal Cannula 2 09/27/17 15:11 98.6 72 16 122/73 (89) 95 I/O 09/27/17 09/27/17 09/27/17 09/28/17 09/28/17 09/28/17 07:00 15:00 23:00 07:00 15:00 23:00 Intake Total 0 ml 1010 ml Output Total 500 ml 1350 ml 80 ml Balance -500 ml -1350 ml 1010 ml -80 ml IV Total 0 ml 1010 ml Output Urine Total 500 ml 1250 ml Drainage Total 100 ml 80 ml # Voids 3 (Katalina Palencia MD, R1) Result Diagram: 09/27/17 0408 09/27/17 0408 Imaging Last Impressions Nephrostomy 09/26/17 0000 Signed Impressions: Service Date/Time: Tuesday, September 26, 2017 10:24 - CONCLUSION: 1. Ultrasound and fluoroscopic guided placement of a [place] loop catheter in the upper pole the right kidney. 2. I believe patient has an obstructed infundibulum with a dilated calyx. Purulent aspirate was sent for culture and sensitivity. 3. We'll plan bringing the patient back down early next week for further evaluation and possible attempt to traverse the obstructed infundibulum. Ken Merritt MD Renal Ultrasound 09/24/17 Signed Impressions: Service Date/Time: Sunday, September 24, 2017 08:40 - CONCLUSION: Abnormal right kidney with complex probably cystic mass upper pole. Minimal perinephric stranding about the right kidney. Continued surveillance is suggested. Low index of suspicion for malignancy. Jacob Sheth MD FACR CT Angiography 09/24/17 Signed Impressions: Service Date/Time: Sunday, September 24, 2017 14:10 - CONCLUSION: 1. No evidence for pulmonary embolism. 2. Right basilar consolidation. 3. Small right pleural effusion. Raghu Klein MD Abdomen/Pelvis CT 09/24/17 Signed Impressions: Service Date/Time: Sunday, September 24, 2017 14:17 - CONCLUSION: Upper pole calyx right kidney with stenotic infundibulum causing partial obstruction. Generally these do not cause pain but are source of chronic infection. I cannot confirm a stone as the cause of this. No other etiology for the right sided abdominal pain is identified. The cecum is deep in the pelvis the normal appearing appendix. There are no inflammatory changes in the pelvis. Jacob Sheth MD FACR Chest X-Ray [id number]/[id number] Signed Impressions: Service Date/Time: September 21:46 - CONCLUSION: Mild basilar infiltrate Shahid Hauser MD Gall Bladder Ultrasound 09/23/17 0000 Signed Impressions: Service Date/Time: September 18:54 - CONCLUSION: Mildly distended gallbladder containing sludge. Complex upper pole renal mass for which followup will be needed. Shahid Hauser MD Objective Remarks GENERAL: Well-nourished, well-developed patient resting in bed, uncomfortable but in no acute distress. SKIN: Warm and dry. HEAD: NC/AT EYES: No scleral icterus. No injection or drainage. CARDIOVASCULAR: Normal S1-S2 . Regular rate and rhythm without murmurs, gallops , or rubs. RESPIRATORY: Breath sounds equal and clear bilaterally, anteriorly. No accessory muscle use. No crackles or wheezes. GASTROINTESTINAL: Abdomen fullness, tenderness to palpation at RLQ and right flank remains, slightly distended.No rebound tenderness. Nephrotomy tube in place R flank, draining sanguinous fluid. Drain site c/d/i. EXTREMITIES: No cyanosis, or edema. NEUROLOGICAL: Awake, alert. Grossly non-focal. (Katalina Palencia MD, R1) A/P Assessment and Plan 42 yo M with no PMH presenting with: Discharge Planning nephrostomy tube management (likely removal prior to D/C) (Katalina Palencia MD, R1) Attending Attestation Patient seen and examined. Case reviewed and discussed Agree with plan of care as discussed with me and documented in the resident note. (Fiona Villa MD) Problem List: (1) Abdominal pain ICD Codes: R10.9 - Unspecified abdominal pain Status: Acute Plan: Sudden onset of severe, sharp RLQ abdominal/R flank pain present 48 hours prior to admission Likely diagnosis UTI based on work-up, possibly related to obstruction now relieved by nephrostomy tube placed by IR on 09/26. Nephrostomy tube repositioned by IR on 09/27. CT findings above renal ultrasound to further evaluate renal cyst, see above -Zosyn 4.5 g IV every 6 hours started on 09/24 -general surgery consulted, appreciate recommendations -Appendicitis is ruled out, now signed off -Consult infectious disease, appreciate antibiotic recommendations -Continue Zosyn for now -May consider cipro on discharge unless repeat C/S indicates otherwise -Gram stain: Rare white blood cells, no organisms seen. -Wound culture (preliminary): Gram-negative willian -Follow C/S taken at time of nephrostomy placement -Percocet Q4H PRN for moderate-severe pain and Dilaudid Q3H PRN for breakthrough Antibiotic History Zosyn 09/24 - present Flagyl 09/23 - 09/24 Rocephin 09/23 - 09/24 Zithromax 09/23 - 09/24 (2) UTI (urinary tract infection) ICD Codes: N39.0 - Urinary tract infection, site not specified Status: Acute Plan: UA showed significant WBC, leukocyte esterase, Nitrites on 09/21 Complicated by possible intrarenal obstruction, s/p nephrostomy tube 09/26 by IR Culture grew carmona sensitive E coli UA on admission showing protein, [address] abdomen findings as above Had been on cipro for 48 hours prior to admission -Consulted ID for antibiotic recommendations, see above -Monitory drainage from nephrostomy tube to assess when it can be removed (3) Renal cyst ICD Codes: N28.1 - Cyst of kidney, acquired Status: Acute Plan: CT abdomen on admission showed benign-appearing cysts in upper pole cortices of both kidneys Renal ultrasound on 09/24 shows abnormal right kidney with complex cystic mass in the upper pole. Minimal perinephric stranding about the right kidney CT abdomen pelvis on 420 shows upper pole calyx of right kidney with stenotic infundibulum causing partial obstruction. Likely source of chronic infection. Stone not visualized. Normal-appearing appendix. -Spoke with Dr. Hauser about findings of CT. He stated that there was fluid in the retroperitoneum that could lead to symptoms of pain. He suggested consulting IR for possible percutaneous drainage. IR placed right nephrostomy tube 09/26, nephrostomy repositioned on 09/27. Likely cystic structure was abscess, will manage as noted above (4) Pleural effusion ICD Codes: J90 - Pleural effusion, not elsewhere classified Status: Acute Plan: CT abdomen on exam showed developing bibasilar airspace disease, atelectatic on the left and possible early infiltrate/effusion on the right Does not note cough or SOB but has been bedridden for 2 days CXR on 09/23 shows mild basilar infiltrate Legionella, pneumococcal urinary Ag negative Likely related to intraabdominal inflammation due to complicated UTI Continue incentive spirometry Check CXR tomorrow AM (5) Elevated LFTs ICD Codes: R79.89 - Other specified abnormal findings of blood chemistry Status: Acute Plan: AST/ALT up trending Continue to monitor (6) Constipation ICD Codes: K59.00 - Constipation, unspecified Status: Resolved Plan: Patient with 3-day history of constipation Patient on constipation protocol. Given lactulose x1 this morning. Continue to monitor, consider additional dose of lactulose if patient does not have a bowel movement. (7) FEN Plan: Fluids: NS at 140 cc/hr Electrolytes: monitor and replete PRN Nutrition: Regular diet DVT PPX: Lovenox 40 mg QD (Katalina Palencia MD, R1) Katalina Palencia MD, R1 Sep 28, 2017 13:59 Fiona Villa MD Oct 01, 2017 13:08
[2017-09-28 16:00] VITALS: BP 137/78; PULSE 84; RESP 20; TEMP 98.7; O2SAT 94
--- NOTE | 2017-09-28 16:35 | RADRPT ---
EXAM DATE/TIME: 09/28/2017 16:23 [place] COMPARISON: CHEST PA & LAT, September 23, 2017, 21:46. INDICATIONS : Pleural effusion, short of breath. MEDICAL HISTORY : None. SURGICAL HISTORY : Nephrostomy. ENCOUNTER: Initial ACUITY: 4 - 6 days PAIN SCORE: 0/10 LOCATION: Bilateral chest FINDINGS: PA and lateral views of the chest demonstrate mild elevation of the right hemidiaphragm. Right basila r consolidation/effusion with a small, left-sided effusion. [place] loop catheter projects over the righ t upper abdominal quadrant. Heart size is normal. Osseous structures are intact. CONCLUSION: 1. Interval development of right basilar consolidation/effusion. 2. Developing small left-sided effusion with regional atelectasis. Ken Merritt MD on September 28, 2017 at 16:29 Board Certified Radiologist. This report was verified electronically.
[2017-09-28 20:00] VITALS: BP 135/75; PULSE 82; RESP 17; TEMP 98.2; O2SAT 94
[2017-09-28] MEDS ORDERED: HYDROmorphone HCL PF 0.5 MG/0.5 ML SYRINGE IV PRN (22:00)
[2017-09-29] VITALS (7 sets, daily range): BP systolic 131–141; BP diastolic 70–86; PULSE 64–80; RESP 16–20; TEMP 98.2–99; O2SAT 94–99
[2017-09-29] MEDS: SODIUM CHLOR 0.9% 1000 ML INJ 1,000 ML IV SCH ×4 (01:23→20:21)
[2017-09-29] MEDS: HYDROmorphone HCL PF 2 MG/ML VIAL IV PUSH PRN ×2 (02:25→09:45)
[2017-09-29 03:03] LABS: HEMATOCRIT 36.9 % (39.0-51.0); HEMOGLOBIN 12.1 GM/DL (13.0-17.0)
[2017-09-29 03:21] LABS: ALBUMIN 2.7 GM/DL (3.4-5.0); DIRECT BILIRUBIN ADULT 0.1 MG/DL (0.0-0.2)
[2017-09-29 03:23] LABS: INDIRECT BILIRUBIN 0.1 MG/DL (0.0-0.8); TOTAL BILIRUBIN ADULT 0.2 MG/DL (0.2-1.0); TOTAL PROTEIN 7.7 GM/DL (6.4-8.2)
[2017-09-29] MEDS: PIPERACIL-TAZO 4.5 GM PREMIX 100 ML IV SCH ×4 (06:03→22:24)
[2017-09-29] MEDS: LACTOBACILLUS ACIDOPHILUS TAB PO SCH ×2 (08:43→20:20)
[2017-09-29] MEDS: DOCUSATE SODIUM 50 MG/SENNA 8.6 MG TAB PO SCH ×2 (08:43→20:20)
[2017-09-29] MEDS: SODIUM CHLORIDE 0.9% FLUSH 10 ML FLUSH IV FLUSH SCH ×2 (08:44→20:20)
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
--- NOTE | 2017-09-29 11:42 | HHI.FPPN ---
Subjective Remarks Patient seen and examined this morning at bedside. Overnight patient stated he developed increasing right flank pressure and when he went to urinate noted blood in his urine with blood clots. He stated the pain resolved after he passed the blood clots. This morning patient stated the pain was returning, pain is tolerable on current medications. Patient describes right side flank pain as dull and right-sided back pain as a sharp pain. Denies any association of right upper quadrant pain after eating. Denies any burning urination, chest pain or shortness of breath.The patient had a bowel movement yesterday after receiving lactulose. (Katalina Palencia MD, R1) Objective Vitals Vital Signs Date Time Temp Pulse Resp B/P (MAP) Pulse Ox O2 Delivery O2 Flow Rate FiO2 09/29/17 08:00 98.3 74 20 137/70 (92) 94 09/29/17 07:00 Room Air 09/29/17 04:00 98.5 76 17 139/78 (98) 95 09/29/17 00:00 98.9 80 17 134/79 (97) 95 09/28/17 20:00 Room Air 09/28/17 20:00 98.2 82 17 135/75 (95) 94 09/28/17 16:00 98.7 84 20 137/78 (97) 94 09/28/17 16:00 Room Air 09/28/17 12:00 Room Air 09/28/17 11:58 98.3 74 20 129/76 (93) 95 I/O 09/28/17 09/28/17 09/28/17 09/29/17 09/29/17 09/29/17 07:00 15:00 23:00 07:00 15:00 23:00 Intake Total 1010 ml 240 ml 1009 ml Output Total 80 ml 1450 ml Balance 1010 ml -80 ml 240 ml -441 ml Intake Oral 240 ml 240 ml IV Total 1010 ml 769 ml Output Urine Total 1450 ml Drainage Total 80 ml # Voids 3 11 # Bowel Movements 4 (Katalina Palencia MD, R1) Result Diagram: 09/29/17 0224 09/27/17 0408 Imaging Last Impressions Chest X-Ray 09/28/17 0000 Signed Impressions: Service Date/Time: Thursday, September 28, 2017 16:23 - CONCLUSION: 1. Interval development of right basilar consolidation/effusion. 2. Developing small left-sided effusion with regional atelectasis. Ken Merritt MD Nephrostomy 09/26/17 0000 Signed Impressions: Service Date/Time: Tuesday, September 26, 2017 10:24 - CONCLUSION: 1. Ultrasound and fluoroscopic guided placement of a [place] loop catheter in the upper pole the right kidney. 2. I believe patient has an obstructed infundibulum with a dilated calyx. Purulent aspirate was sent for culture and sensitivity. 3. We'll plan bringing the patient back down early next week for further evaluation and possible attempt to traverse the obstructed infundibulum. Ken Merritt MD Renal Ultrasound 09/24/17 0000 Signed Impressions: Service Date/Time: Sunday, September 24, 2017 08:40 - CONCLUSION: Abnormal right kidney with complex probably cystic mass upper pole. Minimal perinephric stranding about the right kidney. Continued surveillance is suggested. Low index of suspicion for malignancy. Jacob Sheth MD FACR CT Angiography 09/24/17 0000 Signed Impressions: Service Date/Time: Sunday, September 24, 2017 14:10 - CONCLUSION: 1. No evidence for pulmonary embolism. 2. Right basilar consolidation. 3. Small right pleural effusion. Raghu Klein MD Abdomen/Pelvis CT 09/24/17 0000 Signed Impressions: Service Date/Time: Sunday, September 24, 2017 14:17 - CONCLUSION: Upper pole calyx right kidney with stenotic infundibulum causing partial obstruction. Generally these do not cause pain but are source of chronic infection. I cannot confirm a stone as the cause of this. No other etiology for the right sided abdominal pain is identified. The cecum is deep in the pelvis the normal appearing appendix. There are no inflammatory changes in the pelvis. Jacob Sheth MD FACR Gall Bladder Ultrasound 09/23/17 0000 Signed Impressions: Service Date/Time: September 18:54 - CONCLUSION: Mildly distended gallbladder containing sludge. Complex upper pole renal mass for which followup will be needed. Shahid Hauser MD Objective Remarks GENERAL: Well-nourished, well-developed patient sitting in bed, in no acute distress. SKIN: Warm and dry. HEAD: NC/AT EYES: No scleral icterus. No injection or drainage. CARDIOVASCULAR: Normal S1-S2 . Regular rate and rhythm without murmurs, gallops , or rubs. RESPIRATORY: Breath sounds equal and clear bilaterally, mild atelectasis at bases. No accessory muscle use. No crackles or wheezes. GASTROINTESTINAL: Abdomen fullness improved, tenderness to palpation at right flank remains, non-distended. No rebound tenderness. Nephrotomy tube in place R flank, draining minimal sanguinous fluid. Drain site c/d/i. EXTREMITIES: No cyanosis, or edema. NEUROLOGICAL: Awake, alert. Grossly non-focal. (Katalina Palencia MD, R1) A/P Assessment and Plan 42 yo M with no PMH presenting with: Discharge Planning nephrostomy tube management (likely removal prior to D/C) (Katalina Palencia MD, R1) Attending Attestation Patient seen and examined. Case reviewed and discussed Agree with plan of care as discussed with me and documented in the resident note. (Fiona Villa MD) Problem List: (1) Abdominal pain ICD Codes: R10.9 - Unspecified abdominal pain Status: Acute Plan: Sudden onset of severe, sharp RLQ abdominal/R flank pain present 48 hours prior to admission Likely diagnosis UTI based on work-up, possibly related to obstruction now relieved by nephrostomy tube placed by IR on 09/26. Nephrostomy tube repositioned by IR on 09/27. CT findings above renal ultrasound to further evaluate renal cyst, see above -Zosyn 4.5 g IV every 6 hours started on 09/24 -general surgery consulted, appreciate recommendations -Appendicitis is ruled out, now signed off -Consult infectious disease, appreciate antibiotic recommendations -Continue Zosyn for now -C/S: organism sensitive to Zosyn -May consider cipro on discharge unless repeat C/S indicates otherwise -Gram stain: Rare white blood cells, no organisms seen. -Kidney abscess wound culture: Pansensitive E. coli -However, sensitivities not listed for cipro will clarify discharge antibiotic rec with ID -Oxycodone Q4H PRN for moderate-severe pain and Dilaudid Q3H PRN for breakthrough Antibiotic History Zosyn 09/24 - present Flagyl 09/23 - 09/24 Rocephin 09/23 - 09/24 Zithromax 09/23 - 09/24 (2) UTI (urinary tract infection) ICD Codes: N39.0 - Urinary tract infection, site not specified Status: Acute Plan: UA showed significant WBC, leukocyte esterase, Nitrites on 09/21 Complicated by possible intrarenal obstruction, s/p nephrostomy tube 09/26 by IR Culture grew carmona sensitive E coli UA on admission showing protein, [address] abdomen findings as above Had been on cipro for 48 hours prior to admission -Consulted ID for antibiotic recommendations, see above -Monitory drainage from nephrostomy tube to assess when it can be removed (3) Renal cyst ICD Codes: N28.1 - Cyst of kidney, acquired Status: Acute Plan: CT abdomen on admission showed benign-appearing cysts in upper pole cortices of both kidneys Renal ultrasound on 09/24 shows abnormal right kidney with complex cystic mass in the upper pole. Minimal perinephric stranding about the right kidney CT abdomen pelvis on 420 shows upper pole calyx of right kidney with stenotic infundibulum causing partial obstruction. Likely source of chronic infection. Stone not visualized. Normal-appearing appendix. -Spoke with Dr. Hauser about findings of CT. He stated that there was fluid in the retroperitoneum that could lead to symptoms of pain. He suggested consulting IR for possible percutaneous drainage. IR placed right nephrostomy tube 09/26, nephrostomy repositioned on 09/27. Patient developed hematuria over night, patient stated it is improving (no blood clots seen in urine this morning and urine is supervisory historian). H/H stable (12.1/36.9), will continue to monitor plan to strain urine collected from last night to evaluate for kidney stones. Likely cystic structure was abscess, will manage as noted above (4) Pleural effusion ICD Codes: J90 - Pleural effusion, not elsewhere classified Status: Acute Plan: CT abdomen on exam showed developing bibasilar airspace disease, atelectatic on the left and possible early infiltrate/effusion on the right CXR on 09/23 shows mild basilar infiltrate Legionella, pneumococcal urinary Ag negative Likely related to intraabdominal inflammation due to complicated UTI Continue incentive spirometry repeat CXR 09/28: Interval development of right bibasilar consolidation/effusion and small left-sided effusion and regional atelectasis (5) Elevated LFTs ICD Codes: R79.89 - Other specified abnormal findings of blood chemistry Status: Acute Plan: AST/ALT downtrending this morning Hepatitis panel negative Continue to monitor Order liver ultrasound if LFTs start to increase again CT abdomen/pelvis on 09/24: Liver spleen and gallbladder are free of focal defects Gallbladder ultrasound taken on 09/23: Mildly distended gallbladder containing sludge (6) Constipation ICD Codes: K59.00 - Constipation, unspecified Status: Resolved Plan: Patient with prior 3-day history of constipation. Patient on constipation protocol. Given lactulose x1 09/28 with appropriate response. (7) FEN Plan: Fluids: NS at 140 cc/hr Electrolytes: monitor and replete PRN Nutrition: Regular diet DVT PPX: SCDs (Katalina Palencia MD, R1) Katalina Palencia MD, R1 Sep 29, 2017 11:42 Fiona Villa MD Oct 01, 2017 13:08
[2017-09-29] MEDS: HYDROmorphone HCL PF 0.5 MG/0.5 ML SYRINGE IV PUSH PRN ×2 (14:27→20:20)
--- NOTE | 2017-09-29 14:54 | RADRPT ---
EXAM DATE/TIME: 09/29/2017 14:05 [facility] COMPARISON: CT ABDOMEN & PELVIS W/O CONTRAST, September 22, 2017, 0:57. INDICATIONS : Renal cyst. Enlarging right sided effusion/consolidation. ORAL CONTRAST: No oral contrast ingested. RADIATION DOSE: 4.90 CTDIvol (mGy) MEDICAL HISTORY : Gastroesophageal reflux disease. SURGICAL HISTORY : Right nephrostomy. ENCOUNTER: Subsequent ACUITY: 2 days PAIN SCALE: 4/10 LOCATION: Right Renal TECHNIQUE: Volumetric scanning of the abdomen and pelvis was performed. Using automated exposure control and ad justment of the mA and/or kV according to patient size, radiation dose was kept as low as reasonably achievable to obtain optimal diagnostic quality images. DICOM format image data is available electro nically for review and comparison. FINDINGS: LOWER LUNGS: Small right-sided effusion with associated consolidation. Stable granulomatous type calcification in the right base mild atelectatic changes of the left hemidiaphragm. LIVER: Homogeneous density without lesion. There is no dilation of the biliary tree. No calcified gallston es. SPLEEN: Normal size without lesion. PANCREAS: Within normal limits. KIDNEYS: Low density collection in the upper pole of the right kidney now contains a [place] loop drain. There is some increased density within the collection possibly representing residual contrast from the recent intervention. ADRENAL GLANDS: Within normal limits. VASCULAR: There is no aortic aneurysm. BOWEL/MESENTERY: The stomach, small bowel, and colon demonstrate no acute abnormality. There is no free intraperitone al air. Small amount of fluid in the deep pelvis. ABDOMINAL WALL: Within normal limits. RETROPERITONEUM: There is no lymphadenopathy. BLADDER: No wall thickening or mass. REPRODUCTIVE: Within normal limits. INGUINAL: There is no lymphadenopathy or hernia. MUSCULOSKELETAL: Within normal limits for patient age. CONCLUSION: 1. [place]vas loop. In the fluid collection in the upper pole of the right kidney. Increased density within the collection may represent residual contrast from the prior interventions. 2. Small right-sided effusion with developing consolidation/infiltrate. Minimal atelectatic changes i n the left base. 3. Small amount of fluid in the deep pelvis. Ken Merritt MD on September 29, 2017 at 14:40 Board Certified Radiologist. This report was verified electronically.
[2017-09-29] MEDS ORDERED: HYDROmorphone HCL PF 2 MG/ML VIAL IV PUSH ONE (23:15)
[2017-09-30] MEDS: HYDROmorphone HCL PF 0.5 MG/0.5 ML SYRINGE IV PUSH PRN ×7 (01:18→21:25)
[2017-09-30 04:00] VITALS: BP 136/74; PULSE 69; RESP 16; TEMP 98.8; O2SAT 97
[2017-09-30 04:46] LABS: HEMATOCRIT 35.9 % (39.0-51.0); HEMOGLOBIN 12.1 GM/DL (13.0-17.0)
[2017-09-30] MEDS: PIPERACIL-TAZO 4.5 GM PREMIX 100 ML IV SCH ×2 (04:52→12:30)
[2017-09-30] MEDS: SODIUM CHLOR 0.9% 1000 ML INJ 1,000 ML IV SCH ×3 (04:52→20:03)
[2017-09-30 05:09] LABS: ALBUMIN 2.5 GM/DL (3.4-5.0)
[2017-09-30 05:12] LABS: DIRECT BILIRUBIN ADULT 0.1 MG/DL (0.0-0.2); TOTAL BILIRUBIN ADULT 0.1 MG/DL (0.2-1.0); TOTAL PROTEIN 7.2 GM/DL (6.4-8.2)
[2017-09-30 08:00] VITALS: BP_SYST 108; BP_SYST 133; BP_DIAS 60; BP_DIAS 83; PULSE 61; PULSE 79; RESP 18; RESP 20; TEMP 98.3; TEMP 98.4; O2SAT 96
[2017-09-30] MEDS: LACTOBACILLUS ACIDOPHILUS TAB PO SCH ×2 (08:23→20:19)
[2017-09-30] MEDS: SODIUM CHLORIDE 0.9% FLUSH 10 ML FLUSH IV FLUSH SCH ×2 (08:24→20:20)
[2017-09-30] MEDS: DOCUSATE SODIUM 50 MG/SENNA 8.6 MG TAB PO SCH ×2 (08:27→20:19)
[2017-09-30 12:00] VITALS: BP 132/72; PULSE 71; RESP 18; TEMP 98.3; O2SAT 96
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
[2017-09-30] MEDS ORDERED: THROMBIN (TOPICAL) 5,000 UNIT VIAL ONE (14:16)
--- NOTE | 2017-09-30 14:58 | HHI.FPPN ---
Subjective Remarks Patient seen and examined this morning at bedside. Patient IV medication was decreased yesterday however patient complained of increased pain overnight. Received 1 dose of Dilaudid 1 mg. Patient continues to have hematuria. He is still complaining of pain along the right flank. Patient will like to have nephrostomy tube removed since there has been minimal drainage. (Katalina Palencia MD, R1) Objective Vitals Vital Signs Date Time Temp Pulse Resp B/P (MAP) Pulse Ox O2 Delivery O2 Flow Rate FiO2 09/30/17 12:00 98.3 71 18 132/72 (92) 96 09/30/17 08:00 98.3 61 18 133/83 (100) 96 09/30/17 07:00 Room Air 09/30/17 05:22 16 09/30/17 04:00 98.8 69 16 136/74 (94) 97 09/29/17 23:36 99.0 73 16 141/86 (104) 99 09/29/17 23:25 16 09/29/17 20:30 Room Air 09/29/17 20:00 98.6 75 16 135/81 (99) 95 09/29/17 16:00 98.6 64 20 131/71 (91) 95 I/O 09/29/17 09/29/17 09/29/17 09/30/17 09/30/17 09/30/17 07:00 15:00 23:00 07:00 15:00 23:00 Intake Total 1009 ml 1480 ml 100 ml Output Total 1450 ml 975 ml 3450 ml Balance -441 ml 505 ml -3350 ml Intake Oral 240 ml 480 ml IV Total 769 ml 1000 ml 100 ml Output Urine Total 1450 ml 975 ml 3400 ml Drainage Total 50 ml # Voids 8 # Bowel Movements 2 (Katalina Palencia MD, R1) Result Diagram: 09/30/17 0335 09/27/17 0408 Imaging Last Impressions Abdomen/Pelvis CT 09/29/17 0000 Signed Impressions: Service Date/Time: Friday, September 29, 2017 14:05 - CONCLUSION: 1. [place] loop. In the fluid collection in the upper pole of the right kidney. Increased density within the collection may represent residual contrast from the prior interventions. 2. Small right-sided effusion with developing consolidation/infiltrate. Minimal atelectatic changes in the left base. 3. Small amount of fluid in the deep pelvis. Ken Merritt MD Chest X-Ray 09/28/17 0000 Signed Impressions: Service Date/Time: Thursday, September 28, 2017 16:23 - CONCLUSION: 1. Interval development of right basilar consolidation/effusion. 2. Developing small left-sided effusion with regional atelectasis. Ken Merritt MD Nephrostomy 09/26/17 0000 Signed Impressions: Service Date/Time: Tuesday, September 26, 2017 10:24 - CONCLUSION: 1. Ultrasound and fluoroscopic guided placement of a [place] loop catheter in the upper pole the right kidney. 2. I believe patient has an obstructed infundibulum with a dilated calyx. Purulent aspirate was sent for culture and sensitivity. 3. We'll plan bringing the patient back down early next week for further evaluation and possible attempt to traverse the obstructed infundibulum. Ken Merritt MD Renal Ultrasound 09/24/17 0000 Signed Impressions: Service Date/Time: Sunday, September 24, 2017 08:40 - CONCLUSION: Abnormal right kidney with complex probably cystic mass upper pole. Minimal perinephric stranding about the right kidney. Continued surveillance is suggested. Low index of suspicion for malignancy. Jacob Sheth MD FACR CT Angiography 09/24/17 0000 Signed Impressions: Service Date/Time: Sunday, September 24, 2017 14:10 - CONCLUSION: 1. No evidence for pulmonary embolism. 2. Right basilar consolidation. 3. Small right pleural effusion. Raghu Klein MD Gall Bladder Ultrasound 09/23/17 0000 Signed Impressions: Service Date/Time: September 18:54 - CONCLUSION: Mildly distended gallbladder containing sludge. Complex upper pole renal mass for which followup will be needed. Shahid Hauser MD Objective Remarks GENERAL: Well-nourished, well-developed patient sitting in chair, in no acute distress. SKIN: Warm and dry. HEAD: NC/AT EYES: No scleral icterus. No injection or drainage. CARDIOVASCULAR: Normal S1-S2 . Regular rate and rhythm without murmurs, gallops , or rubs. RESPIRATORY: Breath sounds equal and clear bilaterally, mild atelectasis at bases. No accessory muscle use. No crackles or wheezes. GASTROINTESTINAL: Abdomen soft, tenderness to palpation at right flank remains, non-distended. No rebound tenderness. Nephrotomy tube in place R flank, draining minimal sanguinous fluid. Drain site c/d/i. EXTREMITIES: No cyanosis, or edema. NEUROLOGICAL: Awake, alert. Grossly non-focal. (Katalina Palencia MD, R1) A/P Assessment and Plan 42 yo M with no PMH presenting with: Discharge Planning Patient would need urology procedure to address obstruction found in right kidney. Procedure will be done by Dr. Perez once pt is able to be scheduled. Patient is self pay and will need to remain in hospital for a couple of day until urology procedure is able to be completed. Will discuss this with patient in the afternoon. (Katalina Palencia MD, R1) Attending Attestation Patient seen and examined. Case reviewed and discussed Agree with plan of care as discussed with me and documented in the resident note. (Fiona Villa MD) Problem List: (1) Abdominal pain ICD Codes: R10.9 - Unspecified abdominal pain Status: Acute Plan: Sudden onset of severe, sharp RLQ abdominal/R flank pain present 48 hours prior to admission Likely diagnosis UTI based on work-up, possibly related to obstruction now relieved by nephrostomy tube placed by IR on 09/26. Nephrostomy tube repositioned by IR on 09/27. CT findings above renal ultrasound to further evaluate renal cyst, see above Repeat CT abdomen/pelvis 09/29: fluid collection in the upper pole of right kidney is increased density may represent residual contrast from prior intervention. Small right-sided effusion with developing consolidation/ infiltrate. -Zosyn 4.5 g IV every 6 hours started on 09/24 -general surgery consulted, appreciate recommendations -Appendicitis is ruled out, now signed off -Consult infectious disease, appreciate antibiotic recommendations -stop Zosyn -Cipro 750 BID x 14 days. -C/S obtained when nephrostomy tube was placed: Cx Pansensitive E. coli, organism sensitive to Zosyn -Gram stain: Rare white blood cells, no organisms seen. -Oxycodone Q4H PRN for moderate-severe pain and Dilaudid Q3H PRN for breakthrough -Pain medication adjusted to increase dilaudid back to 1mg Q3 PRN for breakthrough -Patient has not been taking po oxycodone because he state it will not help his pain. Nurse advised to try and encourage pt to take po medication before giving breakthrough meds. -Consider increasing oxycodone to 15 mg po for better pain control if needed. Antibiotic History Zosyn 09/24 - 09/30 Flagyl 09/23 - 09/24 Rocephin 09/23 - 09/24 Zithromax 09/23 - 09/24 Cipro 09/30- present (2) UTI (urinary tract infection) ICD Codes: N39.0 - Urinary tract infection, site not specified Status: Acute Plan: UA showed significant WBC, leukocyte esterase, Nitrites on 09/21 Complicated by possible intrarenal obstruction, s/p nephrostomy tube 09/26 by IR Culture grew carmona sensitive E coli UA on admission showing protein, [address] abdomen findings as above Had been on cipro for 48 hours prior to admission -Consulted ID for antibiotic recommendations, see above -Urology Medical team spoke with Dr. Perez (urology) who recommends nephrostomy tube to be removed. (3) Renal cyst ICD Codes: N28.1 - Cyst of kidney, acquired Status: Acute Plan: CT abdomen on admission showed benign-appearing cysts in upper pole cortices of both kidneys Renal ultrasound on 09/24 shows abnormal right kidney with complex cystic mass in the upper pole. Minimal perinephric stranding about the right kidney CT abdomen pelvis on shows upper pole calyx of right kidney with stenotic infundibulum causing partial obstruction. Likely source of chronic infection. Stone not visualized. Normal-appearing appendix. -Spoke with Dr. Hauser about findings of CT. He stated that there was fluid in the retroperitoneum that could lead to symptoms of pain. He suggested consulting IR for possible percutaneous drainage. IR consulted IR placed right nephrostomy tube 09/26, nephrostomy repositioned on 09/27. IR procedure note: unable to find path out of right superior pole collection with nephrostomy tube. No other options for percutaneous intervention. - Recommendation to have urology attempt procedure to transverse obstructed infundibulum from below. Dr. Perez recommended removal of nephrostomy tube and pt awaiting urology procedure to be done during this hospital stay. Patient with hematuria for the past 2 days H/H stable (12.1/36.9), will continue to monitor plan to strain urine collected from last night to evaluate for kidney stones, no kidney stone identified. (4) Pleural effusion ICD Codes: J90 - Pleural effusion, not elsewhere classified Status: Acute Plan: CT abdomen on exam showed developing bibasilar airspace disease, atelectatic on the left and possible early infiltrate/effusion on the right CXR on 09/23 shows mild basilar infiltrate Legionella, pneumococcal urinary Ag negative Likely related to intraabdominal inflammation due to complicated UTI Continue incentive spirometry repeat CXR 09/28: Interval development of right bibasilar consolidation/effusion and small left-sided effusion and regional atelectasis (5) Elevated LFTs ICD Codes: R79.89 - Other specified abnormal findings of blood chemistry Status: Acute Plan: AST/ALT downtrending this morning Hepatitis panel negative Continue to monitor Order liver ultrasound if LFTs start to increase again Imaging: CT abdomen/pelvis on 09/24: Liver spleen and gallbladder are free of focal defects Gallbladder ultrasound taken on 09/23: Mildly distended gallbladder containing sludge CT abd/pelvis 09/29: Liver -homogeneous density without lesion. There is no dilation of the biliary tree. No calcified gallstones. (6) Constipation ICD Codes: K59.00 - Constipation, unspecified Status: Resolved Plan: Patient with prior 3-day history of constipation. Patient on constipation protocol. Given lactulose x1 09/28 with appropriate response. (7) FEN Plan: Fluids: NS at 140 cc/hr Electrolytes: monitor and replete PRN Nutrition: Regular diet DVT PPX: SCDs (Katalina Palencia MD, R1) Katalina Palencia MD, R1 Sep 30, 2017 14:58 Fiona Villa MD Oct 01, 2017 13:07
[2017-09-30] MEDS: CIPROFLOXACIN 750 MG TAB PO SCH (15:48)
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
[2017-09-30 16:00] VITALS: BP 154/84; PULSE 70; RESP 18; TEMP 98.2; O2SAT 97
[2017-09-30] MEDS ORDERED: TAMSULOSIN HCL 0.4 MG CAP PO ONE (16:00)
[2017-09-30 20:10] VITALS: BP 139/82; PULSE 66; RESP 16; TEMP 98.6; O2SAT 98
[2017-09-30 23:18] VITALS: BP 145/83; PULSE 71; RESP 16; TEMP 98.6; O2SAT 98
[2017-10-01] MEDS: CIPROFLOXACIN 750 MG TAB PO SCH ×2 (00:32→13:27)
[2017-10-01] MEDS: SODIUM CHLOR 0.9% 1000 ML INJ 1,000 ML IV SCH ×3 (00:32→15:46)
[2017-10-01] MEDS: HYDROmorphone HCL PF 0.5 MG/0.5 ML SYRINGE IV PUSH PRN ×2 (02:03→08:51)
[2017-10-01 03:54] VITALS: BP 128/73; PULSE 66; RESP 16; TEMP 98.8; O2SAT 94
[2017-10-01 05:27] LABS: AUTOMATED NEUTROPHIL # 5.2 TH/MM3 (1.8-7.7); BASOPHIL # 0.1 TH/MM3 (0-0.2); BASOPHIL % 0.7 % (0.0-2.0); EOSINOPHIL # 0.2 TH/MM3 (0-0.4); EOSINOPHIL % 3.2 % (0.0-4.0); HEMOGLOBIN 11.4 GM/DL (13.0-17.0); LYMPH % 17.4 % (9.0-44.0); LYMPHOCYTE # 1.3 TH/MM3 (1.0-4.8); MEAN CELL VOLUME 81.3 FL (80.0-100.0); MEAN CORPUSCULAR HEMOGLOBIN 27.2 PG (27.0-34.0); MEAN CORPUSCULAR HGB CONC 33.5 % (32.0-36.0); MONO % 10.2 % (0.0-8.0); MONOCYTE # 0.8 TH/MM3 (0-0.9); NEUT % 68.5 % (16.0-70.0); PLATELET COUNT 543 TH/MM3 (150-450); RED BLOOD COUNT 4.18 MIL/MM3 (4.50-5.90); RED CELL DISTRIBUTION WIDTH 14.4 % (11.6-17.2); WHITE BLOOD COUNT 7.5 TH/MM3 (4.0-11.0)
[2017-10-01 05:46] LABS: ALBUMIN 2.5 GM/DL (3.4-5.0); ALT (GPT) 65 U/L (12-78); AST (GOT) 26 U/L (15-37); BICARBONATE 29.7 MEQ/L (21.0-32.0); BLOOD UREA NITROGEN 8 MG/DL (7-18); CALCIUM 8.9 MG/DL (8.5-10.1); CHLORIDE 103 MEQ/L (98-107); CREATININE 0.87 MG/DL (0.60-1.30); GLOMERULAR FILTRATION RATE 117 ML/MIN (>89); GLUCOSE,RANDOM 88 MG/DL (74-106); SODIUM (NA) 142 MEQ/L (136-145)
[2017-10-01 05:48] LABS: ALKALINE PHOSPHATASE 154 U/L (45-117); TOTAL BILIRUBIN ADULT 0.2 MG/DL (0.2-1.0); TOTAL PROTEIN 6.9 GM/DL (6.4-8.2)
[2017-10-01 08:04] VITALS: BP 149/69; PULSE 85; RESP 18; TEMP 98.3; O2SAT 93
[2017-10-01] MEDS: LACTOBACILLUS ACIDOPHILUS TAB PO SCH ×2 (08:43→21:07)
[2017-10-01] MEDS: DOCUSATE SODIUM 50 MG/SENNA 8.6 MG TAB PO SCH ×2 (08:43→21:00)
[2017-10-01] MEDS: TAMSULOSIN HCL 0.4 MG CAP PO SCH ×2 (08:52→21:00)
[2017-10-01] MEDS: SODIUM CHLORIDE 0.9% FLUSH 10 ML FLUSH IV FLUSH SCH ×2 (09:00→21:07)
--- NOTE | 2017-10-01 11:19 | HHI.FPPN ---
Subjective Remarks Patient seen and examined at bedside this morning. Patient stated that he feels a lot better today, pain is minimal. Nephrostomy tube was removed yesterday. He received Flomax last night, he also had an episode of hematuria after which he passed some blood clots and since then his pain has subsided significantly. Urine this morning is clear. No other concerns. Objective Vitals Vital Signs Date Time Temp Pulse Resp B/P (MAP) Pulse Ox O2 Delivery O2 Flow Rate FiO2 10/01/17 08:04 98.3 85 18 149/69 (95) 93 10/01/17 03:54 98.8 66 16 128/73 (91) 94 10/01/17 02:33 16 10/01/17 01:32 16 09/30/17 23:18 98.6 71 16 145/83 (103) 98 09/30/17 20:10 98.6 66 16 139/82 (101) 98 09/30/17 20:00 98 Room Air 09/30/17 16:00 98.2 70 18 154/84 (107) 97 09/30/17 12:00 98.3 71 18 132/72 (92) 96 I/O 09/30/17 09/30/17 09/30/17 10/01/17 10/01/17 10/01/17 07:00 15:00 23:00 07:00 15:00 23:00 Intake Total 100 ml 480 ml 1440 ml Output Total 3450 ml 700 ml 2175 ml Balance -3350 ml -220 ml -735 ml Intake Oral 480 ml 1440 ml IV Total 100 ml Output Urine Total 3400 ml 700 ml 2175 ml Drainage Total 50 ml # Voids 8 # Bowel Movements 0 Result Diagram: 10/01/1740910/01/17409 Objective Remarks GENERAL: Well-nourished, well-developed patient laying in bed, in no acute distress. SKIN: Warm and dry. HEAD: NC/AT EYES: No scleral icterus. No injection or drainage. CARDIOVASCULAR: Normal S1-S2 . Regular rate and rhythm without murmurs, gallops , or rubs. RESPIRATORY: Breath sounds equal and clear bilaterally, mild atelectasis at bases. No accessory muscle use. No crackles or wheezes. GASTROINTESTINAL: Abdomen soft, non-distended, mild tenderness to palpation at right flank, much improved from yesterday. No rebound tenderness. Nephrotomy tube removed 09/30, Drain site with dressing c/d/i. Small non-tender boil on right lower back, likely due to adhesive allergy, no erythematous EXTREMITIES: No cyanosis, or edema. NEUROLOGICAL: Awake, alert. Grossly non-focal. A/P Assessment and Plan 42 yo M with no PMH presenting with: Discharge Planning Patient would need urology procedure to address obstruction found in right kidney. Procedure will be done by Dr. Perez once pt is able to be scheduled. Patient is self pay and will need to remain in hospital for a couple of day until urology procedure is able to be completed. Problem List: (1) Abdominal pain ICD Codes: R10.9 - Unspecified abdominal pain Status: Acute Plan: Sudden onset of severe, sharp RLQ abdominal/R flank pain present 48 hours prior to admission Likely diagnosis UTI based on work-up, possibly related to obstruction now relieved by nephrostomy tube placed by IR on 09/26. Nephrostomy tube repositioned by IR on 09/27. CT findings above renal ultrasound to further evaluate renal cyst, see above Repeat CT abdomen/pelvis 09/29: fluid collection in the upper pole of right kidney is increased density may represent residual contrast from prior intervention. Small right-sided effusion with developing consolidation/ infiltrate. -Zosyn 4.5 g IV every 6 hours started on 09/24 -general surgery consulted, appreciate recommendations -Appendicitis is ruled out, now signed off -Consult infectious disease, appreciate antibiotic recommendations -stop Zosyn -Cipro 750 BID x 14 days. -C/S obtained when nephrostomy tube was placed: Cx Pansensitive E. coli, organism sensitive to Zosyn -Gram stain: Rare white blood cells, no organisms seen. -Oxycodone Q4H PRN for moderate-severe pain and Dilaudid Q3H PRN for breakthrough -Pain medication adjusted dilaudid decreased to 1mg -po oxycodone-5 pain scale 3-5 and oxycodone-10 pain scale 6-10 -Consider increasing oxycodone to 15 mg po for better pain control if needed. Antibiotic History Zosyn 09/24 - 09/30 Flagyl 09/23 - 09/24 Rocephin 09/23 - 09/24 Zithromax 09/23 - 09/24 Cipro 09/30- present (2) UTI (urinary tract infection) ICD Codes: N39.0 - Urinary tract infection, site not specified Status: Acute Plan: UA showed significant WBC, leukocyte esterase, Nitrites on 09/21 Complicated by possible intrarenal obstruction, s/p nephrostomy tube 09/26 by IR Culture grew carmona sensitive E coli UA on admission showing protein, [address] abdomen findings as above Had been on cipro for 48 hours prior to admission -Consulted ID for antibiotic recommendations, see above -Urology Medical team spoke with Dr. Perez (urology) who recommends nephrostomy tube to be removed. (3) Renal cyst ICD Codes: N28.1 - Cyst of kidney, acquired Status: Acute Plan: CT abdomen on admission showed benign-appearing cysts in upper pole cortices of both kidneys Renal ultrasound on 09/24 shows abnormal right kidney with complex cystic mass in the upper pole. Minimal perinephric stranding about the right kidney CT abdomen pelvis on 420 shows upper pole calyx of right kidney with stenotic infundibulum causing partial obstruction. Likely source of chronic infection. Stone not visualized. Normal-appearing appendix. -Spoke with Dr. Hauser about findings of CT. He stated that there was fluid in the retroperitoneum that could lead to symptoms of pain. He suggested consulting IR for possible percutaneous drainage. IR consulted IR placed right nephrostomy tube 09/26, nephrostomy repositioned on 09/27. IR procedure note: unable to find path out of right superior pole collection with nephrostomy tube. No other options for percutaneous intervention. - Recommendation to have urology attempt procedure to transverse obstructed infundibulum from below. Dr. Perez recommended removal of nephrostomy tube and pt awaiting urology procedure to be done during this hospital stay. Patient with hematuria for the past 3 days, resolved this morning. c/w flomax BID H/H stable (12.1/36.9), will continue to monitor Urine strained, no kidney stone identified. (4) Pleural effusion ICD Codes: J90 - Pleural effusion, not elsewhere classified Status: Acute Plan: CT abdomen on exam showed developing bibasilar airspace disease, atelectatic on the left and possible early infiltrate/effusion on the right CXR on 09/23 shows mild basilar infiltrate Legionella, pneumococcal urinary Ag negative Likely related to intraabdominal inflammation due to complicated UTI Continue incentive spirometry repeat CXR 09/28: Interval development of right bibasilar consolidation/effusion and small left-sided effusion and regional atelectasis (5) Elevated LFTs ICD Codes: R79.89 - Other specified abnormal findings of blood chemistry Status: Resolved Plan: AST/ALT normalized Hepatitis panel negative Imaging: CT abdomen/pelvis on 09/24: Liver spleen and gallbladder are free of focal defects Gallbladder ultrasound taken on 09/23: Mildly distended gallbladder containing sludge CT abd/pelvis 09/29: Liver -homogeneous density without lesion. There is no dilation of the biliary tree. No calcified gallstones. (6) FEN Plan: Fluids: NS at 140 cc/hr Electrolytes: monitor and replete PRN Nutrition: Regular diet DVT PPX: Katalina Granados MD, R1 Oct 01, 2017 11:19
[2017-10-01] MEDS ORDERED: HYDROmorphone HCL PF 0.5 MG/0.5 ML SYRINGE IV PUSH PRN (12:00)
[2017-10-01 12:04] VITALS: BP 143/71; PULSE 76; RESP 18; TEMP 97.8; O2SAT 96
[2017-10-01 16:04] VITALS: BP 125/73; PULSE 81; RESP 18; TEMP 98.4; O2SAT 95
[2017-10-01 20:00] VITALS: BP 127/74; PULSE 79; RESP 18; TEMP 99.1; O2SAT 96
[2017-10-01 23:49] VITALS: BP 144/76; PULSE 77; RESP 18; TEMP 98.2; O2SAT 96
[2017-10-02] MEDS: SODIUM CHLOR 0.9% 1000 ML INJ 1,000 ML IV SCH ×3 (00:39→21:06)
[2017-10-02] MEDS: CIPROFLOXACIN 750 MG TAB PO SCH ×3 (02:06→23:37)
[2017-10-02 04:48] LABS: HEMOGLOBIN 11.8 GM/DL (13.0-17.0)
[2017-10-02 05:15] LABS: BICARBONATE 26.7 MEQ/L (21.0-32.0); CALCIUM 9.2 MG/DL (8.5-10.1); CREATININE 0.86 MG/DL (0.60-1.30)
[2017-10-02 05:41] VITALS: BP 127/60; PULSE 64; RESP 18; TEMP 98.6; O2SAT 96
[2017-10-02 08:04] VITALS: BP 141/89; PULSE 66; RESP 16; TEMP 97.8; O2SAT 97
[2017-10-02] MEDS: SODIUM CHLORIDE 0.9% FLUSH 10 ML FLUSH IV FLUSH SCH ×2 (09:00→20:51)
[2017-10-02] MEDS: DOCUSATE SODIUM 50 MG/SENNA 8.6 MG TAB PO SCH ×2 (09:11→20:50)
[2017-10-02] MEDS: TAMSULOSIN HCL 0.4 MG CAP PO SCH ×2 (09:11→20:50)
[2017-10-02] MEDS: LACTOBACILLUS ACIDOPHILUS TAB PO SCH ×2 (09:11→20:50)
[2017-10-02 12:04] VITALS: BP 160/99; PULSE 84; RESP 16; TEMP 98.6; O2SAT 96
--- NOTE | 2017-10-02 14:25 | HHI.FPPN ---
Subjective Remarks Patient is doing relatively well this morning. Patient states he was walking around the halls and he started to develop bright red bleeding in his urine. This color is starting to lighten up at this time. He is having some increased discomfort in the right lower quadrant/right flank which is similar to previous. On the whole, however the patient is doing relatively well. He denies fever, chills, nausea, vomiting, dysuria, chest pain, shortness of breath. Objective Vitals Vital Signs Date Time Temp Pulse Resp B/P (MAP) Pulse Ox O2 Delivery O2 Flow Rate FiO2 10/02/17 08:04 97.8 66 16 141/89 (106) 97 10/02/17 05:41 98.6 64 18 127/60 (82) 96 10/01/17 23:49 98.2 77 18 144/76 (98) 96 10/01/17 20:15 97 Room Air 10/01/17 20:00 99.1 79 18 127/74 (91) 96 10/01/17 16:04 98.4 81 18 125/73 (90) 95 I/O 10/01/17 10/01/17 10/01/17 10/02/17 10/02/17 10/02/17 07:00 15:00 23:00 07:00 15:00 23:00 Intake Total 1440 ml 100 ml 480 ml 360 ml Output Total 2175 ml 1200 ml 625 ml Balance -735 ml 100 ml -720 ml -265 ml Intake Oral 1440 ml 480 ml 360 ml IV Total 100 ml Output Urine Total 2175 ml 1200 ml 625 ml # Bowel Movements 0 0 Result Diagram: 10/02/17 04110/02/17 041 Objective Remarks GENERAL: Well-nourished, well-developed patient laying in bed, in no acute distress. SKIN: Warm and dry. HEAD: NC/AT EYES: No scleral icterus. No injection or drainage. CARDIOVASCULAR: Normal S1-S2 . Regular rate and rhythm without murmurs, gallops , or rubs. RESPIRATORY: Breath sounds equal and clear bilaterally, mild atelectasis at bases. No accessory muscle use. No crackles or wheezes. GASTROINTESTINAL: Abdomen soft, non-distended, mild tenderness to palpation at right flank. No rebound tenderness. Nephrotomy tube removed 09/30, Drain site with dressing c/d/i. Small non-tender boil on right lower back, likely due to adhesive allergy, no erythematous EXTREMITIES: No cyanosis, or edema. NEUROLOGICAL: Awake, alert. Grossly non-focal. A/P Assessment and Plan 42 yo M with no PMH presenting with: Discharge Planning Initially, it was thought the patient will need to remain in the hospital for urology procedure given the obstruction from the right kidney. However, after further discussion with urologist, Dr. Perez, patient would be safe to discharge without this procedure. However, today, the patient has had increased bleeding in his urine output and will need to stay until this clears up. Problem List: (1) Abdominal pain ICD Codes: R10.9 - Unspecified abdominal pain Status: Acute Plan: Sudden onset of severe, sharp RLQ abdominal/R flank pain present 48 hours prior to admission Likely diagnosis UTI based on work-up, possibly related to obstruction now relieved by nephrostomy tube placed by IR on 09/26. Nephrostomy tube repositioned by IR on 09/27. CT findings above renal ultrasound to further evaluate renal cyst, see above Repeat CT abdomen/pelvis 09/29: fluid collection in the upper pole of right kidney is increased density may represent residual contrast from prior intervention. Small right-sided effusion with developing consolidation/ infiltrate. -Zosyn 4.5 g IV every 6 hours started on 09/24 -general surgery consulted, appreciate recommendations -Appendicitis is ruled out, now signed off -Consult infectious disease, appreciate antibiotic recommendations -stop Zosyn -Cipro 750 BID x 14 days. -C/S obtained when nephrostomy tube was placed: Cx Pansensitive E. coli, organism sensitive to Zosyn -Gram stain: Rare white blood cells, no organisms seen. -Oxycodone Q4H PRN for moderate-severe pain and Dilaudid Q3H PRN for breakthrough -Pain medication adjusted dilaudid decreased to 1mg -po oxycodone-5 pain scale 3-5 and oxycodone-10 pain scale 6-10 -Consider increasing oxycodone to 15 mg po for better pain control if needed. Antibiotic History Zosyn 09/24 - 09/30 Flagyl 09/23 - 09/24 Rocephin 09/23 - 09/24 Zithromax 09/23 - 09/24 Cipro 09/30- present (2) UTI (urinary tract infection) ICD Codes: N39.0 - Urinary tract infection, site not specified Status: Acute Plan: UA showed significant WBC, leukocyte esterase, Nitrites on 09/21 Complicated by possible intrarenal obstruction, s/p nephrostomy tube 09/26 by IR Culture grew carmona sensitive E coli UA on admission showing protein, [address] abdomen findings as above Had been on cipro for 48 hours prior to admission -Consulted ID for antibiotic recommendations, see above -Urology Medical team spoke with Dr. Perez (urology) who recommends nephrostomy tube to be removed. (3) Renal cyst ICD Codes: N28.1 - Cyst of kidney, acquired Status: Acute Plan: CT abdomen on admission showed benign-appearing cysts in upper pole cortices of both kidneys Renal ultrasound on 09/24 shows abnormal right kidney with complex cystic mass in the upper pole. Minimal perinephric stranding about the right kidney CT abdomen pelvis on 420 shows upper pole calyx of right kidney with stenotic infundibulum causing partial obstruction. Likely source of chronic infection. Stone not visualized. Normal-appearing appendix. -Spoke with Dr. Hauser about findings of CT. He stated that there was fluid in the retroperitoneum that could lead to symptoms of pain. He suggested consulting IR for possible percutaneous drainage. IR consulted IR placed right nephrostomy tube 09/26, nephrostomy repositioned on 09/27. IR procedure note: unable to find path out of right superior pole collection with nephrostomy tube. No other options for percutaneous intervention. - Recommendation to have urology attempt procedure to transverse obstructed infundibulum from below. Dr. Perez recommended removal of nephrostomy tube and pt awaiting urology procedure to be done during this hospital stay. Patient with hematuria for the past 3 days, resolved this morning. c/w flomax BID H/H stable (12.1/36.9), will continue to monitor Urine strained, no kidney stone identified. (4) Pleural effusion ICD Codes: J90 - Pleural effusion, not elsewhere classified Status: Acute Plan: CT abdomen on exam showed developing bibasilar airspace disease, atelectatic on the left and possible early infiltrate/effusion on the right CXR on 09/23 shows mild basilar infiltrate Legionella, pneumococcal urinary Ag negative Likely related to intraabdominal inflammation due to complicated UTI Continue incentive spirometry repeat CXR 09/28: Interval development of right bibasilar consolidation/effusion and small left-sided effusion and regional atelectasis (5) Elevated LFTs ICD Codes: R79.89 - Other specified abnormal findings of blood chemistry Status: Resolved Plan: AST/ALT normalized Hepatitis panel negative Imaging: CT abdomen/pelvis on 09/24: Liver spleen and gallbladder are free of focal defects Gallbladder ultrasound taken on 09/23: Mildly distended gallbladder containing sludge CT abd/pelvis 09/29: Liver -homogeneous density without lesion. There is no dilation of the biliary tree. No calcified gallstones. (6) FEN Plan: Fluids: NS at 140 cc/hr Electrolytes: monitor and replete PRN Nutrition: Regular diet DVT PPX: Bon Sheffield MD R3 Oct 02, 2017 14:25
[2017-10-02 16:04] VITALS: BP 159/90; PULSE 74; RESP 16; TEMP 98.6; O2SAT 98
[2017-10-02] MEDS: HYDROmorphone HCL 2 MG TAB PO PRN ×2 (17:31→23:37)
[2017-10-02 20:00] VITALS: BP 138/71; PULSE 79; RESP 20; TEMP 99.1; O2SAT 96
[2017-10-03] VITALS: BP 135/66; PULSE 77; RESP 20; TEMP 98.4; O2SAT 96
[2017-10-03] MEDS: SODIUM CHLOR 0.9% 1000 ML INJ 1,000 ML IV SCH (03:34)
[2017-10-03 04:00] VITALS: BP 140/80; PULSE 62; RESP 18; TEMP 98.5; O2SAT 96
[2017-10-03 05:56] LABS: HEMATOCRIT 33.2 % (39.0-51.0); HEMOGLOBIN 11.2 GM/DL (13.0-17.0)
[2017-10-03] MEDS: HYDROmorphone HCL 2 MG TAB PO PRN (06:10)
[2017-10-03 08:00] VITALS: BP 140/69; PULSE 74; RESP 20; TEMP 98.7; O2SAT 95
[2017-10-03] MEDS: LACTOBACILLUS ACIDOPHILUS TAB PO SCH (08:08)
[2017-10-03] MEDS: DOCUSATE SODIUM 50 MG/SENNA 8.6 MG TAB PO SCH (08:08)
[2017-10-03] MEDS: TAMSULOSIN HCL 0.4 MG CAP PO SCH (08:08)
[2017-10-03] MEDS: SODIUM CHLORIDE 0.9% FLUSH 10 ML FLUSH IV FLUSH SCH (08:09)
[2017-10-03 12:00] VITALS: BP 128/82; PULSE 84; RESP 20; TEMP 97.9; O2SAT 97
[2017-10-03] MEDS: CIPROFLOXACIN 750 MG TAB PO SCH (12:08)
[2017-10-03] MEDS ORDERED: OXYC-395 PO (12:30)
[2017-10-03] MEDS ORDERED: CIPR750T2 PO (12:30)
--- NOTE | 2017-10-03 12:31 | HHI.DCPOC ---
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 Avoid second hand smoke Call the 24-hour hour crisis hotline for domestic abuse at Aristides Shipley MD R2 Oct 03, 2017 12:31
--- NOTE | 2017-10-03 12:35 | HHI.FPPN ---
Subjective Remarks No acute events overnight. Feels great this morning. Ambulating without difficulty. Had some blood clots in urine yesterday, one smaller one last night. Urine now clear to intermittently pink. Very infrequent dysuria ("felt it once yesterday"). Tolerating diet. Pain well controlled, had been taking oxycodone about every 6 hours. Only needed one breakthrough Dilaudid last 24 h. Objective Vitals Vital Signs Date Time Temp Pulse Resp B/P (MAP) Pulse Ox O2 Delivery O2 Flow Rate FiO2 10/03/17 12:00 97.9 84 20 128/82 (97) 97 10/03/17 08:00 98.7 74 20 140/69 (92) 95 10/03/17 04:00 Room Air 10/03/17 04:00 98.5 62 18 140/80 (100) 96 10/03/17 00:00 Room Air 10/03/17 00:00 98.4 77 20 135/66 (89) 96 10/02/17 20:00 99.1 79 20 138/71 (93) 96 10/02/17 20:00 Room Air 10/02/17 16:04 98.6 74 16 159/90 (113) 98 I/O 10/02/17 10/02/17 10/02/17 10/03/17 10/03/17 10/03/17 07:00 15:00 23:00 07:00 15:00 23:00 Intake Total 360 ml 360 ml 480 ml Output Total 625 ml 480 ml 1100 ml Balance -265 ml -120 ml -620 ml Intake Oral 360 ml 360 ml 480 ml Output Urine Total 625 ml 480 ml 1100 ml # Bowel Movements 2 0 Result Diagram: 10/03/17 0537 10/02/17 0410 Imaging Last Impressions Abdomen/Pelvis CT 09/29/17 0000 Signed Impressions: Service Date/Time: Friday, September 29, 2017 14:05 - CONCLUSION: 1. [place] loop. In the fluid collection in the upper pole of the right kidney. Increased density within the collection may represent residual contrast from the prior interventions. 2. Small right-sided effusion with developing consolidation/infiltrate. Minimal atelectatic changes in the left base. 3. Small amount of fluid in the deep pelvis. Ken Merritt MD Chest X-Ray 09/28/17 0000 Signed Impressions: Service Date/Time: Thursday, September 28, 2017 16:23 - CONCLUSION: 1. Interval development of right basilar consolidation/effusion. 2. Developing small left-sided effusion with regional atelectasis. Ken Merritt MD Nephrostomy 09/27/17 0952 Signed Impressions: Service Date/Time: Wednesday, September 27, 2017 16:42 - CONCLUSION: . 1. Unable to find a communication between the right renal upper pole fluid collection and the patent collecting system. 2. New 8 [place] nephrostomy tube. 3. Will leave the catheter for now. If urology wants to attempt to traverse the present obstructive infundibulum, and use the existing catheter to opacify the upper pole collection. Ken Merritt MD Renal Ultrasound 09/24/17 0000 Signed Impressions: Service Date/Time: Sunday, September 24, 2017 08:40 - CONCLUSION: Abnormal right kidney with complex probably cystic mass upper pole. Minimal perinephric stranding about the right kidney. Continued surveillance is suggested. Low index of suspicion for malignancy. Jacob Sheth MD FACR CT Angiography 09/24/17 0000 Signed Impressions: Service Date/Time: Sunday, September 24, 2017 14:10 - CONCLUSION: 1. No evidence for pulmonary embolism. 2. Right basilar consolidation. 3. Small right pleural effusion. Raghu Klein MD Gall Bladder Ultrasound 09/23/17 0000 Signed Impressions: Service Date/Time: September 18:54 - CONCLUSION: Mildly distended gallbladder containing sludge. Complex upper pole renal mass for which followup will be needed. Shahid Hauser MD Objective Remarks GENERAL: Well-nourished, well-developed patient laying in bed, in no acute distress. SKIN: Warm and dry. CARDIOVASCULAR: Normal S1-S2 . Normal rate and regular rhythm without murmurs, gallops, or rubs. RESPIRATORY: Breath sounds equal and clear bilaterally. No accessory muscle use. No crackles or wheezes. GASTROINTESTINAL: Abdomen soft, non-distended, mild tenderness to palpation at right flank. No rebound tenderness. Nephrotomy tube removed 09/30, Drain site with dressing c/d/i. Small non-tender boil on right lower back, not erythematous. EXTREMITIES: No cyanosis, or edema. NEUROLOGICAL: Awake, alert. Grossly non-focal. Medications and IVs Current Medications Medications (Trade) Dose Ordered Sig/Thanh Route Start Time Stop Time Status Last Admin (NS Flush) 2 ml UNSCH PRN IV FLUSH 09/23/17 21:30 09/25/17 17:50 (NS Flush) 2 ml BID IV FLUSH 09/24/17 09:00 10/02/17 20:51 (Narcan Inj) 0.4 mg UNSCH PRN IV PUSH 09/23/17 21:30 (Mirta-Colace) 1 tab BID PO 09/24/17 09:00 10/03/17 08:08 (Milk Of Magnesia Liq) 30 ml Q12H PRN PO 09/23/17 21:30 09/28/17 08:22 (Senokot) 17.2 mg Q12H PRN PO 09/23/17 21:30 (Dulcolax Supp) 10 mg DAILY PRN RECTAL 09/23/17 21:30 (Lactulose Liq) 30 ml DAILY PRN PO 09/23/17 21:30 09/28/17 12:20 Sodium Chloride 1,000 ml @ 140 mls/hr Q7H9M IV 09/23/17 23:36 10/02/17 14:45 (Tylenol) 500 mg Q6H PRN PO 09/24/17 05:15 09/27/17 00:37 (Pill Splitter) 1 ea UNSCH PRN OTHER 09/24/17 10:45 (Lactinex) 1 tab Q12HR PO 09/25/17 21:00 10/03/17 08:08 (Roxicodone) 5 mg Q4H PRN PO 09/28/17 17:00 (Roxicodone) 10 mg Q4H PRN PO 09/28/17 17:00 10/03/17 12:08 (Cipro) 750 mg Q12H PO 09/30/17 13:00 10/07/17 23:00 10/03/17 12:08 (Flomax) 0.4 mg Q12HR PO 10/01/17 09:00 10/03/17 08:08 A/P Assessment and Plan 42 yo M with no PMH presenting with: Problem List: (1) Abdominal pain ICD Codes: R10.9 - Unspecified abdominal pain Status: Resolved Plan: Sudden onset of severe, sharp RLQ abdominal/R flank pain present 48 hours prior to admission Likely diagnosis UTI based on work-up, possibly related to dilated renal calyx now relieved by nephrostomy tube placed by IR on 09/26. Nephrostomy tube repositioned by IR on 09/27. CT findings above renal ultrasound to further evaluate renal cyst, see above Repeat CT abdomen/pelvis 09/29: fluid collection in the upper pole of right kidney is increased density may represent residual contrast from prior intervention. Small right-sided effusion with developing consolidation/ infiltrate. C/S obtained when nephrostomy tube was placed: Cx Pansensitive E. coli -general surgery consulted, appreciate recommendations -Appendicitis is ruled out, now signed off -Consult infectious disease, appreciate antibiotic recommendations -Cipro 750 BID to complete 14 total days on discharge -Urology consulted, appreciate recommendations -Discussed case with Dr. 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 No need for inpatient procedure. Recommended outpatient urology follow up at some point for possible stenting, but noted that delayed follow up should not put patient at risk for repeat event or other complication. -Oxycodone Q6H PRN for moderate-severe pain Antibiotic History Zosyn 09/24 - 09/30 Flagyl 09/23 - 09/24 Rocephin 09/23 - 09/24 Zithromax 09/23 - 09/24 Cipro 09/30- present (2) UTI (urinary tract infection) ICD Codes: N39.0 - Urinary tract infection, site not specified Status: Acute Plan: See above (3) Renal cyst ICD Codes: N28.1 - Cyst of kidney, acquired Status: Acute Plan: CT abdomen on admission showed benign-appearing cysts in upper pole cortices of both kidneys Renal ultrasound on 09/24 shows abnormal right kidney with complex cystic mass in the upper pole. Minimal perinephric stranding about the right kidney CT abdomen pelvis on shows upper pole calyx of right kidney with stenotic infundibulum causing partial obstruction. Likely source of chronic infection. Stone not visualized. Normal-appearing appendix. Spoke with Dr. Hauser about findings of CT. He stated that there was fluid in the retroperitoneum that could lead to symptoms of pain. He suggested consulting IR for possible percutaneous drainage. IR consulted IR placed right nephrostomy tube 09/26, nephrostomy repositioned on 09/27. IR procedure note: unable to find path out of right superior pole collection with nephrostomy tube. No other options for percutaneous intervention. - Recommendation to have urology attempt procedure to transverse obstructed infundibulum from below. Dr. Perez recommended removal of nephrostomy tube and pt awaiting urology procedure to be done during this hospital stay. Patient with hematuria for the past 3 days, resolved this morning. H/H stable (12.1/36.9), will continue to monitor Urine strained, no kidney stone identified. (4) Pleural effusion ICD Codes: J90 - Pleural effusion, not elsewhere classified Status: Acute Plan: Clinically well appearing with benign exam CT abdomen on exam showed developing bibasilar airspace disease, atelectatic on the left and possible early infiltrate/effusion on the right CXR on 09/23 shows mild basilar infiltrate Legionella, pneumococcal urinary Ag negative Likely related to intraabdominal inflammation due to complicated UTI Follow up clinically as indicated based on symptoms (5) FEN Plan: Fluids: PO only Electrolytes: monitor and replete PRN Nutrition: Regular diet DVT PPX: SCDs Dispo: Medically stable for discharge home today Problem Qualifiers (1) UTI (urinary tract infection): Qualified Codes: N10 - Acute pyelonephritis Aristides Shipley MD R2 Oct 03, 2017 12:35
--- NOTE | 2017-10-03 15:29 | HHI.DS ---
Discharge Summary Admission Date Sep 23, 2017 at 19:05 Discharge Date: Oct 03, 2017 Admitting Diagnosis Pleural Effusion; R Abdomen Pain (1) Abdominal pain Diagnosis: Principal Plan: Sudden onset of severe, sharp RLQ abdominal/R flank pain present 48 hours prior to admission Likely diagnosis UTI based on work-up, possibly related to dilated renal calyx now relieved by nephrostomy tube placed by IR on 09/26. Nephrostomy tube repositioned by IR on 09/27. CT findings above renal ultrasound to further evaluate renal cyst, see above Repeat CT abdomen/pelvis 09/29: fluid collection in the upper pole of right kidney is increased density may represent residual contrast from prior intervention. Small right-sided effusion with developing consolidation/ infiltrate. C/S obtained when nephrostomy tube was placed: Cx Pansensitive E. coli -general surgery consulted, appreciate recommendations -Appendicitis is ruled out, now signed off -Consult infectious disease, appreciate antibiotic recommendations -Cipro 750 BID to complete 14 total days on discharge -Urology consulted, appreciate recommendations -Discussed case with Dr. 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 No need for inpatient procedure. Recommended outpatient urology follow up at some point for possible stenting, but noted that delayed follow up should not put patient at risk for repeat event or other complication. -Oxycodone Q6H PRN for moderate-severe pain Antibiotic History Zosyn 09/24 - 09/30 Flagyl 09/23 - 09/24 Rocephin 09/23 - 09/24 Zithromax 09/23 - 09/24 Cipro 09/30- present ICD Codes: R10.9 - Unspecified abdominal pain Status: Resolved (2) UTI (urinary tract infection) Diagnosis: Principal Plan: See above ICD Codes: N39.0 - Urinary tract infection, site not specified Status: Acute (3) Renal cyst Diagnosis: Secondary Plan: CT abdomen on admission showed benign-appearing cysts in upper pole cortices of both kidneys Renal ultrasound on 09/24 shows abnormal right kidney with complex cystic mass in the upper pole. Minimal perinephric stranding about the right kidney CT abdomen pelvis on shows upper pole calyx of right kidney with stenotic infundibulum causing partial obstruction. Likely source of chronic infection. Stone not visualized. Normal-appearing appendix. Spoke with Dr. Hauser about findings of CT. He stated that there was fluid in the retroperitoneum that could lead to symptoms of pain. He suggested consulting IR for possible percutaneous drainage. IR consulted IR placed right nephrostomy tube 09/26, nephrostomy repositioned on 09/27. IR procedure note: unable to find path out of right superior pole collection with nephrostomy tube. No other options for percutaneous intervention. - Recommendation to have urology attempt procedure to transverse obstructed infundibulum from below. Dr. Perez recommended removal of nephrostomy tube and pt awaiting urology procedure to be done during this hospital stay. Patient with hematuria for the past 3 days, resolved this morning. H/H stable (12.1/36.9), will continue to monitor Urine strained, no kidney stone identified. ICD Codes: N28.1 - Cyst of kidney, acquired Status: Acute (4) Pleural effusion Diagnosis: Secondary Plan: Clinically well appearing with benign exam CT abdomen on exam showed developing bibasilar airspace disease, atelectatic on the left and possible early infiltrate/effusion on the right CXR on 09/23 shows mild basilar infiltrate Legionella, pneumococcal urinary Ag negative Likely related to intraabdominal inflammation due to complicated UTI Follow up clinically as indicated based on symptoms ICD Codes: J90 - Pleural effusion, not elsewhere classified Status: Acute Consultants Urology - Dr. Perez IR - Dr. Merritt Surgery - Dr. Crockett ID - Dr. Melton Brief History 42-year-old male who presented to the emergency department on 09/21 for complaint of sudden onset right flank pain. Symptoms associated with nausea without vomiting. Did not report dysuria frequency urgency or penile discharge. No report of injury. Patient rated pain as severe. A UA was significant for UTI that grew pansensitive E coli. He was treated with Rocephin x1 and discharged home on Cipro. Since that time, his pain has gotten worse. Pain has been constant since onset, (RLQ, on lateral aspect of abdomen adjacent to umbilicus) , also has R flank pain, day prior to admission he started having periumbilical pain, also substernal, nonradiating pain (he associates this with lifting weights recently, worse with deep breathing). Pain is worse with movement, riding in car, etc. He also reports occasional dull R groin pain/fullness. He had been having constipation until today when he had 3-4 episodes of diarrhea. Nonbloody. Continues to have nausea. Has also had chills, no recorded fevers. He has been bedridden for last 2 days. 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 Gem loop. In the fluid collection in the upper pole of the right kidney. Increased density within the collection may represent residual contrast from the prior interventions. 2. Small right-sided effusion with developing consolidation/infiltrate. Minimal atelectatic changes in the left base. 3. Small amount of fluid in the deep pelvis. Ken Merritt MD Chest X-Ray 09/28/17 0000 Signed Impressions: Service Date/Time: Thursday, September 28, 2017 16:23 - CONCLUSION: 1. Interval development of right basilar consolidation/effusion. 2. Developing small left-sided effusion with regional atelectasis. Ken Merritt MD Nephrostomy 09/27/17 0952 Signed Impressions: Service Date/Time: Wednesday, September 27, 2017 16:42 - CONCLUSION: . 1. Unable to find a communication between the right renal upper pole fluid collection and the patent collecting system. 2. New 8 Dutch nephrostomy tube. 3. Will leave the catheter for now. If urology wants to attempt to traverse the present obstructive infundibulum, and use the existing catheter to opacify the upper pole collection. Ken Merritt MD Renal Ultrasound 09/24/17 0000 Signed Impressions: Service Date/Time: Sunday, September 24, 2017 08:40 - CONCLUSION: Abnormal right kidney with complex probably cystic mass upper pole. Minimal perinephric stranding about the right kidney. Continued surveillance is suggested. Low index of suspicion for malignancy. Jacob Sheth MD FACR CT Angiography 09/24/17 0000 Signed Impressions: Service Date/Time: Sunday, September 24, 2017 14:10 - CONCLUSION: 1. No evidence for pulmonary embolism. 2. Right basilar consolidation. 3. Small right pleural effusion. Raghu Klein MD Gall Bladder Ultrasound 09/23/17 0000 Signed Impressions: Service Date/Time: September 18:54 - CONCLUSION: Mildly distended gallbladder containing sludge. Complex upper pole renal mass for which followup will be needed. Shahid Hauser MD PE at Discharge GENERAL: Well-nourished, well-developed patient laying in bed, in no acute distress. SKIN: Warm and dry. CARDIOVASCULAR: Normal S1-S2 . Normal rate and regular rhythm without murmurs, gallops, or rubs. RESPIRATORY: Breath sounds equal and clear bilaterally. No accessory muscle use. No crackles or wheezes. GASTROINTESTINAL: Abdomen soft, non-distended, mild tenderness to palpation at right flank. No rebound tenderness. Nephrotomy tube removed 09/30, Drain site with dressing c/d/i. Small non-tender boil on right lower back, not erythematous. EXTREMITIES: No cyanosis, or edema. NEUROLOGICAL: Awake, alert. Grossly non-focal. Hospital Course Admitted with severe abdominal pain. CT findings with renal cyst, possible abscess, UA suggestive of UTI. Started on empiric antibiotics (see above for full history). Urology consulted due to finding of stenotic infundibulum causing dilated calyx of right kidney. Urology recommended nephrostomy tube placement by IR, performed on 09/28. Antibiotics tailored based on culture results from fluid drained from nephrostomy tube. Clinically improved, and urology recommended nephrostomy tube be removed. Patient had significant hematuria while nephrostomy tube in place and for approx 2 days after removal. Improved spontaneously. On discharge patient is clinically well. Follow up with urology is recommended at some point on non-urgent basis for consideration of stenting due to the stenotic infundibulum; consulting physician noted patient should be at low risk of complications even if additional urologic procedure not performed. Patient is to complete a total of 14 days on ciprofloxacin per infectious disease recommendations. Pt Condition on Discharge: Stable Discharge Disposition: Discharge Home Discharge Instructions DIET: Follow Instructions for: As Tolerated, No Restrictions Activities you can perform: Regular-No Restrictions Follow up Referrals: PCP Follow-up - 2 Weeks with Betzaida Shah U[facility] - 2 Weeks with Alec House MD Urology - 1 Month with Alec House MD New Orders: URINALYSIS - 2 Weeks New Medications: Ciprofloxacin (Ciprofloxacin) 750 Mg Tab 750 MG PO Q12H for 11 Days, #22 TAB Oxycodone (Oxycodone) 10 Mg Tab 10 MG PO Q6H PRN for BREAKTHROUGH PAIN, #20 TAB Tamsulosin (Flomax) 0.4 Mg Cap 0.4 MG PO HS PRN for BLOOD IN URINE, #10 CAP Take one tab at night if you start to pee blood clots Continued Medications: Ibuprofen (Ibuprofen) 800 Mg Tab 800 MG PO Q8H PRN for PAIN GREATER THAN 5 for 14 Days, #42 TAB 0 Refills Discontinued Medications: Ciprofloxacin (Cipro) 500 Mg Tab 500 MG PO BID for Infection for 7 Days, #14 TAB 0 Refills Aristides Shipley MD R2 Oct 03, 2017 15:29
[2017-10-03] MEDS ORDERED: TAMS5CAP PO (15:32)
== END 2017-10-03 15:32 | disposition home or self-care (01) | DRG 699 ==
LOC: NEPD 12:20 → NEDA 19:05 → NEPFCDU 22:29 → N04A 09-28 11:58
PROVIDERS: ADMIT Family Medicine; ATTEND Family Medicine
PROC: 0T9030Z Drainage of Right Kidney with Drainage Device, Percutaneous Approach (ICD-10-PCS; principal; 2017-09-26)
PROC: 0T25X0Z Change Drainage Device in Kidney, External Approach (ICD-10-PCS; 2017-09-27)
DX: N28.1 Cyst of kidney, acquired (principal); N39.0 Urinary tract infection, site not specified; J90 Pleural effusion, not elsewhere classified; J98.11 Atelectasis; N13.30 Unspecified hydronephrosis; B96.20 Unspecified Escherichia coli [E. coli] as the cause of diseases classified elsewhere; F17.210 Nicotine dependence, cigarettes, uncomplicated; E87.6 Hypokalemia; K59.00 Constipation, unspecified; R31.9 Hematuria, unspecified
CPT/HCPCS: 50432; 71046; 71275; 74176; 74177; 76705; 76775; 80048; 80053; 80074; 80076; 81001; 83605; 83690; 83735; 84145; 84484; 85014; 85018; 85025; 85379; 85610; 85652; 85730; 86703; 87040; 87070; 87077; 87186; 87205; 87449; 94150; 96361; 96365; 96367; 96375; 99152; 99153; C1729; C1769; C1887; C1894; J0696; J1170; J2250; J2270; J2405; J2543; J3010; J7030; Q9963; Q9967